=== PATIENT | male | born 1960 | race Caucasian/White ===

== ENCOUNTER 2025-02-07 13:45 | Outpatient (AMB) | payer OTHER, SELFPAY ==
[2025-02-07 13:48] VITALS: BP 120/68; PULSE 62; BMI 25.4
--- NOTE | 2025-02-07 13:48 | A.OFFVIS_ITS ---
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 Allergies No Known Allergies Allergy (Verified 02/07/25 13:52) Medication List - Last Reconciled 02/07/25 by Bayron Nava MD No Known Home Meds HPI Comments Details: Dominick is here for consultation regarding shortness of breath. He has got chronic myeloid leukemia currently in remission. He was apparently on Dasatinib for treatment. Recently, he was playing pickleball and developed significant shortness of breath/palpitations. It seems he tried that in a few days and again felt the same way. He does not have any history of cardiac issues otherwise coronary disease or myocardial infarction or cardiomyopathy. [facility] Medical History (Updated 02/07/25 @ 14:00 by Bayron Nava MD) CML (chronic myelocytic leukemia) Enlarged heart COPD (chronic obstructive pulmonary disease) Surgical History (Updated 02/07/25 @ 13:53 by Jami Roper) H/O knee surgery Family History (Updated 02/07/25 @ 13:55 by Jami Roper) Mother CHF (congestive heart failure) Pacemaker Stroke Diabetes Father Bladder cancer Social History (Updated 02/07/25 @ 13:55 by Jami Roper) Alcohol intake: former Patient Tobacco Use Status: Never used Tobacco Review of Systems Const Denies weakness ENT Denies dizziness Card Reports chest pain, Denies chest pain with activity, Denies syncope, Denies rapid heart rate, Denies pedal edema, Denies edema, Denies leg edema, Denies lightheadedness, Denies palpitations, Reports dyspnea, Denies dyspnea on exertion and Denies orthopnea Resp Denies cough, Reports dyspnea and Denies dyspnea on exertion GI Denies hematochezia and Denies change in stool character Musc Denies abnormal gait, Denies muscle cramps, Denies muscle weakness, Denies numbness, Denies radiating pain into limb and Denies tingling Neuro Denies abnormal gait, Denies dizziness, Denies syncope, Denies numbness, Denies tingling and Denies weakness Endo Denies palpitations Physical Exam Vital Signs: Last Vital Signs Pulse 62 02/07/25 13:48 BP 120/68 02/07/25 13:48 BMI result Body Mass Index 25.4 Const General: comfortable and no acute distress Orientation/consciousness: patient oriented x3 HEENT Other: Unremarkable Head: Yes normal to inspection Neck Neck: Yes normal visual inspection Chest Chest palpation & inspection: normal inspection of the chest Resp Auscultation: clear to auscultation bilaterally Cardio Palpation: normal PMI Heart sounds: S1 normal heart sound present, S2 normal heart sound present, no gallops, no murmurs and no rubs GI Palpation (GI): Soft to palpation Back/Spine/Pelvis Other: unremarkable Skin General skin exam: no rashes or lesions noted Neuro General: patient oriented x3 Extrem General: Yes normal to inspection Psych Mental Status: mental status grossly normal Office Procedures EKG Details: EKG with underlying sinus rhythm at 62/Min; sinus arrhythmias; cannot exclude old inferior infarct; [place] [address]-[id number], Complete Assessment & Plan Assessment & Plan (1) Chemotherapy follow-up examination: Code(s): Z09 - Encounter for follow-up examination after completed treatment for conditions other than malignant neoplasm Category: Medical (2) SOB (shortness of breath): Code(s): R06.02 - Shortness of breath Category: Medical (3) CML (chronic myelocytic leukemia): Code(s): C92.10 - Chronic myeloid leukemia, BCR/ABL-positive, not having achieved remission Category: Medical Plan In the recent chest x-ray, description of COPD; mild cardiomegaly. However, patient denies any prior history of smoking. With regard to Dasatinib use, he needs evaluation for any drug-induced cardiac dysfunction as well as pulmonary hypertension. We will start with an echocardiogram. If this is unremarkable, then we can consider either stress test or coronary CTA. If any clear LV dysfunction or overt wall motion abnormalities, then may require cardiac catheterization. We will follow-up after the echocardiogram is completed. We will also need his labs from oncologist as he states he was told to have some anemia. Discussed with significant other. Orders: Orders CA echo transthoracic complete Today C92.10 - Chronic myeloid leukemia, BCR/ABL-positive, not having achieved remission, R06.02 - Shortness of breath, Z09 - Encounter for follow-up examination after completed treatment for conditions other than malignant neoplasm Coding Level of Care Code New Pt Level 4 (29999) Complex EM visit Add On G2211 Diagnoses Chemotherapy follow-up examination Z09 SOB (shortness of breath) R06.02 CML (chronic myelocytic leukemia) C92.10 CPT Codes EKG - CPT: 63293-[id number], Complete ([id number])
--- OUTSIDE RECORDS SUMMARY | 2025-02-07 16:23 | XMS_ITS | Encounter Summary ---
Author Organization [facility] Address [address] [place] [address] Care Team Providers Care Trimmer Hand Name Role Phone Shakeel Menard MD Primary Care Provider Unavailab le Reason for Visit * Reason Comments Rash Encounter Details Date Type Department Care Team Description 04/05/2024 Nurse Only [facility] On[facility] [address] [place] [address] Christopher Schrader RN Rash Social History Tobacco Use Types Packs/Day Years Used Date Smoking Tobacco: Never Smokeless Tobacco: Never Alcohol Use Standard Drinks/Week Comments Yes 0 (1 standard drink = 0.6 oz pur e alcohol) social Sex and Gender Information Value Date Recorded Sex Assigned at Male 11/08/2020 8:46 AM EST Gender Identity Male 11/12/2020 12:59 PM EST Sexual Orientation Not on file Job Start Date Occupation Industry Not on file Not on file Not on file documented as of this encounter Progress Notes * Christopher Scrhader RN - 04/05/2024 11:00 AM EDT Patient here for lab work stopped at javascript front end developer and asked to see this documentation writer to discuss side effectfrom Tasigna he was experiencing. Patient has rash covering his entire body, face neck chest thighsand back. Showed Dr. Milton, Pt to stopped Tasigna will switch to Sprycel, new script sent to MD to release to [facility] Called [facility] to stop shipment due to arrive tomorrow. documented in this encounter Plan of Treatment Not on file documented as of this encounter Visit Diagnoses Not on filedocumented in this encounter Care Teams Trimmer Hand Relationship Specialty Start Date End Date Shakeel Menard MD PCP - General Internal Medicine 02/09/24 documented as of this encounter
--- OUTSIDE RECORDS SUMMARY | 2025-02-07 16:23 | XMS_ITS | Clinical Summary ---
Author Organization [facility] Address [address] [place] [address] Care Team Providers Care Credit Assessment Analyst Name Role Phone Shakeel Menard MD Primary Care Provider Unavailab le Allergies No known active allergies Medications Medication Sig Dispensed Refills Start Date End Date Status dasatinib (SPRYCEL) 100 MG tabletIndications:Chr onic myeloid leukemia (HCC) Take 1 tablet (100 mg total) by mouth daily 30 tablet 6 04/05/2024 Active Misc Natural Products (LUTEIN VISION BLEND PO) Take by mouth daily. 0 Active Active Problems No known active problems Social History Tobacco Use Types Packs/Day Years Used Date Smoking Tobacco: Never Smokeless Tobacco: Never Tobacco Cessation:Counseling Given: Not Answered Alcohol Use Standard Drinks/Week Comments Yes 0 (1 standard drink = 0.6 oz pur e alcohol) social Sex and Gender Information Value Date Recorded Sex Assigned at Male 11/08/2020 8:46 AM EST Gender Identity Male 11/12/2020 12:59 PM EST Sexual Orientation Not on file Job Start Date Occupation Industry Not on file Not on file Not on file Last Filed Vital Signs Vital Sign Reading Time Taken Comments Blood Pressure 120/66 08/05/2024 9:14 AM EDT Pulse 59 08/05/2024 9:14 AM EDT Temperature 36.8 ??C (98.2 ??F) 08/05/2024 9:14 AM ED T Respiratory Rate - - Oxygen Saturation 100% 08/05/2024 9:14 AM EDT Inhaled Oxygen Concentration - - Weight 76.9 kg (169 lb 9.6 oz) 08/05/2024 9:14 A M EDT Height 175.3 cm (5' 9 ) 04/28/2024 10:57 AM EDT Body Mass Index 25.05 04/28/2024 10:57 AM EDT Plan of Treatment Health Maintenance Due Date Last Done Comments Hepatitis C Screening 1960 COVID-19 Vaccine (#1) 1966 Pneumococcal Vaccine (1 of 2 - PCV) 1967 Depression Screening 1973 Preventative Health Evaluation 1979 Shingrix-Zoster Vaccine (1 of 2) 1980 Colon Cancer Screening (Colonoscopy) 2006 RSV Adult > 60+ Yrs or Pregn ant (1 - Risk 60-74 years 1-dose series) 2021 Influenza Vaccine (#1) 2024 DTap / Tdap / Td (2 - Td or Tdap) 03/04/2029 019 Hepatitis B Vaccines Aged Out No long er eligible based on patient's age to complete this topic RSV Ped < 20 months Aged Out No longe r eligible based on patient's age to complete this topic Care Teams Credit Assessment Analyst Relationship Specialty Start Date End Date Shakeel Menard MD PCP - General Internal Medicine 02/09/24
--- OUTSIDE RECORDS SUMMARY | 2025-02-07 16:23 | XMS_ITS | Clinical Summary ---
Author Organization [facility] Address [address] [place] [address] Care Team Providers Care Flute Teacher Name Role Phone Quinton Rosales Primary Care Provider Unavailabl e Active Problems Problem Noted Date Diagnosed Date Upper respiratory infection 06/17/2015 Overview (12/07/2023): Onset: 11/01/2010 Cerumen impaction 06/17/2015 Overview (12/07/2023): Onset: 09/01/2009 Microscopic hematuria 06/17/2015 Overview (12/07/2023): Onset: 09/01/2009 Social History Tobacco Use Types Packs/Day Years Used Date Smoking Tobacco: Never Assessed Sex and Gender Information Value Date Recorded Sex Assigned at Not on file Legal Sex Male 3:27 PM EDT Gender Identity Not on file Sexual Orientation Not on file Last Filed Vital Signs Vital Sign Reading Time Taken Comments Blood Pressure 130/80 11/01/2010 11:46 AM EST Pulse 60 11/01/2010 11:45 AM EST Temperature 36.4 ??C (97.5 ??F) 11/01/2010 1 1:45 AM EST Respiratory Rate - - Oxygen Saturation - - Inhaled Oxygen Concentration - - Weight 79.8 kg (175 lb 15.9 oz) 010 11:45 AM EST Height 178.4 cm (5' 10.25 ) 11/01/2010 11:45 AM EST Body Mass Index 25.07 11/01/2010 11:45 AM EST Plan of Treatment Health Maintenance Due Date Last Done Comments Hepatitis C Screening 1960 DTaP/Tdap/Td (1 - Tdap) 1979 Pneumococcal 50+ years (1 of 1 - PCV) 2011 Zoster (Shingrix) (1 of 2) 2011 COVID-19 Vaccine (2023-2 5 season) 2024 Influenza (#1) 2024 RSV (1 - 1-dose 75+ series) 2036 HPV Vaccine Aged Out No longer eligi ble based on patient's age to complete this topic Hep A Aged Out No longer eligi ble based on patient's age to complete this topic Hep B Aged Out No longer eligi ble based on patient's age to complete this topic Hib Aged Out No longer eligi ble based on patient's age to complete this topic Meningococcal ACWY Aged Out No longer eligible based on patient's age to complete this topic Zoster (Zostavax) Discontinued Care Teams Flute Teacher Relationship Specialty Start Date End Date Quinton Rosales PCP - General 06/09/23
--- OUTSIDE RECORDS SUMMARY | 2025-02-07 16:23 | XMS_ITS | Clinical Summary ---
Author Organization [facility] Address [address] [place] [address] Phone Care Team Providers Care System Controller Name Role Phone Shakeel Menard MD Primary Care Provider [phone] Allergies No known active allergies Medications LUTEIN ORAL Take by mouth 1 (one) time each day. Active dasatinib (SPRYCEL) 100 mg tablet Take 1 tablet (100 mg total) by mouth 1 (one) time each day 4 Active multivitamin with minerals (MULTIPLE VITAMIN-MINERAL S ORAL) Take 1 tablet by mouth 1 (one) time each day. 3 01/13/20 25 Discontinued dasatinib (SPRYCEL) 100 mg tablet TAKE 1 TABLET BY MOUTH DAILY 30 tablet 3 4 01/28/20 25 Discontinued Active Problems Problem Noted Date Diagnosed Date CML (chronic myelocytic leukemia) 02/01/2025 Microcytic anemia 02/01/2025 Hypertriglyceridemia 04/14/2018 Mid back pain 04/14/2018 Seborrheic keratosis 09/24/2017 Allergic rhinitis 03/25/2017 Encounters Date Type Department Care Team Description 02/01/2025 9:20 AM EDT Office Visit Gastroenterology [facility] [address] [facility] [address] [facility] [address] [place] [address] Luis Alfredo Bryant MD CML (chronic myelocytic leukemia) (CMS/HCC) (Primary Dx); Microcytic anemia 01/27/2025 10:26 AM EDT - 01/27/2025 11:59 PM EDT Hospital Encounter [facility] Xray [address] [place] [phone] Dyspnea on exertion Discharge Disposition: Home or Self Care 01/27/2025 9:15 AM EDT Office Visit [facility] Hematology Oncology [address] [place] [phone] Magda Milton MD CML (chronic myelocytic leukemia) ([facility]) (Primary Dx); Dyspnea on exertion; Microcytic anemia 01/26/2025 Telephone [facility] Hematology Oncology [address] [place] [phone] Christopher Schrader RN 01/12/2025 9:45 AM EDT Office Visit [facility] Hematology Oncology [address] [place] [phone] Magda Milton MD CML (chronic myelocytic leukemia) ([facility]/HCC) (Primary Dx) from Last 3 Months Immunizations Name Administration Dates Next Due Tdap Tetanus diptheria acell ular pertussis (Boostrix; Adacel) 7yo and older 03/04/2019 Surgical History Surgery Date Site/Laterality Comments OTHER SURGICAL HISTORY Bilateral PROCEDURE: IL ARTHRS KNE SURG W/MENISCECTOMY MED/LAT W/SHVG Medical History Medical History Date Comments History of cellulitis 06/14/2013 DX:History of cellulitis; COMMENT: and abscess of leg History of gastroenteritis 04/14/2018 DX:Hi story of gastroenteritis Mid back pain 04/14/2018 DX:Mid back pain Allergic rhinitis 03/25/2017 DX:Allergic rh initis Hypertriglyceridemia 04/14/2018 DX:Hypertri glyceridemia Family History Medical History Relation Name Comments Other: Other Father Diabetes Mother Relation Name Status Comments Father Alive Mother Alive Social History Tobacco Use Types Packs/Day Years Used Date Smoking Tobacco: Never Smokeless Tobacco: Never Tobacco Cessation:Counseling Given: Not Answered Alcohol Use Standard Drinks/Week Comments Yes 0 (1 standard drink = 0.6 oz pur e alcohol) Sex and Gender Information Value Date Recorded Sex Assigned at Male 01/27/2025 10:25 AM EDT Legal Sex Male 6:06 AM EST Gender Identity Male 01/27/2025 10:25 AM EDT Sexual Orientation Not on file Obstetrics History Last Filed Vital Signs Vital Sign Reading Time Taken Comments Blood Pressure 122/76 02/01/2025 9:14 AM EDT Pulse 76 02/01/2025 9:14 AM EDT Temperature 36.7 ??C (98.1 ??F) 01/27/2025 9:12 AM ED T Respiratory Rate - - Oxygen Saturation 100% 01/27/2025 9:12 AM EDT Inhaled Oxygen Concentration - - Weight 77.1 kg (170 lb) 02/02/2025 11:00 AM EDT Height 175.3 cm (5' 9 ) 02/02/2025 11:00 AM EDT Body Mass Index 25.1 02/02/2025 11:00 AM EDT Plan of Treatment Upcoming Encounters Date Type Department Care Team (Late st Contact Info) Description 02/10/2025 2:30 PM EDT Hospital Encounter [facility] Endoscopy [address] [place] [address] Tomás Conner MD [address] [address] 08/15/2025 10:00 AM EDT Office Visit [facility] Hematology Oncology [address] [place] [address] Magda Milton MD [address] [place] [address] Health Maintenance Due Date Last Done Comments Pneumococcal Vaccine: 50+ Years (1 of 2 - PCV) 1980 Pneumococcal Vaccine: Pediatrics (0 to 5 Years) and At-Risk Patients (6 to 64 Years) (1 of 2 - PCV) 1980 RSV Immunization Adult Patients (1 - Risk 60-74 years 1-dose series) 2021 Depression Screening 10/11/2022 HIV Screening 10/11/2022 Hepatitis C Screening 10/11/2022 Social Influencers of Health Screening 10/11/2022 Cholesterol Screening (Lipid Panel) 01/20/2029 01/21/2024 DTaP,Tdap,and Td Vaccines (2 - Td or Tdap) 03/04/2029 03/04/2019 Colorectal Cancer Screening: Colonoscopy 01/13/2034 01/14/2024 Zoster Vaccines Completed 06/17/2019, 04/05/2019 COVID-19 Vaccine Completed 07/01/2024, 08/2023, 07/26/2022, Additional history exists Influenza Vaccine Completed 07/01/2024, , 07/26/2022, Additional history exists HIB Vaccines Aged Out No longer eligi ble based on patient's age to complete this topic HPV Vaccines Aged Out No longer eligi ble based on patient's age to complete this topic Hepatitis A Vaccines Aged Out No long er eligible based on patient's age to complete this topic Hepatitis B Vaccines Aged Out No long er eligible based on patient's age to complete this topic IPV Vaccines Aged Out No longer eligi ble based on patient's age to complete this topic MMR Vaccines Aged Out No longer eligi ble based on patient's age to complete this topic Meningococcal ACWY Vaccine Aged Out N o longer eligible based on patient's age to complete this topic Meningococcal B Vaccine Aged Out No l onger eligible based on patient's age to complete this topic RSV Immunization Patients Under 20 months Aged Out No longer eligible based on patient's age to complete this topic Varicella Vaccines Aged Out No longer eligible based on patient's age to complete this topic Procedures Procedure Name Priority Date/Time Associated Diagnosis Comments XR CHEST 2 VIEWS Routine 01/27/2025 10:3 9 AM EDT Dyspnea on exertion CBC WITH AUTO DIFFERENTIAL Routine 01/27/2025 9:42 AM EDT CML (chronic myelocytic leukemia) (CMS/HCC) LACTATE DEHYDROGENASE Routine 01/27/2025 9:42 AM EDT CML (chronic myelocytic leukemia) (CMS/HCC) IRON AND TIBC Routine 01/27/2025 9:42 AM EDT CML (chronic myelocytic leukemia) (CMS/HCC) FERRITIN Routine 01/27/2025 9:42 AM EDT CML (chronic myelocytic leukemia) (CMS/HCC) CBC AND DIFFERENTIAL Routine 01/27/2025 9:42 AM EDT CML (chronic myelocytic leukemia) (CMS/HCC) ..MISCELLANEOUS REFERENCE LAB TEST 01/12/2025 CBC WITH AUTO DIFFERENTIAL Routine 12/31/2024 9:51 AM EST Chronic myeloid leukemia (CMS/HCC) BCR ABL1 KINASE PCR, QUANTITATIVE Routine 12/31/2024 9:51 AM EST Chronic myeloid leukemia (CMS/HCC) CBC AND DIFFERENTIAL Routine 12/31/2024 9:51 AM EST Chronic myeloid leukemia (CMS/HCC) COMPREHENSIVE METABOLIC PANEL Routine 12/31/2024 9:51 AM EST Chronic myeloid leukemia (CMS/HCC) LIPID PANEL Routine 01/21/2024 HM COLONOSCOPY Routine 01/14/2024 from Last 3 Months or Most Recently Relevant to Health Maintenance Results * XR Chest 2 Views (01/27/2025 10:39 AM EDT) Anatomical Region Laterality Modality Body Radiographic Karen ging 01/27/2025 11:1 8 AM EDT Impressions 01/27/2025 11:19 AM EDT No acute pulmonary disease. ??Findings as above consistent with COPD. ??Mild cardiomegaly; further evaluation with echocardiography should be considered. Code 58362 -------- FINAL REPORT -------- Dictated By: Jasbir Nobles Dictated Date: 01/27/2025 11:18 ET Assigned Physician: Jasbir Nobles Reviewed and Electronically Signed By: Jasbir Nobles Signed Date: 01/27/2025 11:19 ET Workstation ID: [id number] Transcribed By: Self Edit Transcribed Date: 01/27/2025 11:18 ET Narrative 01/27/2025 11:19 AM EDT HISTORY: The patient is a 64-year-old male with dyspnea. FINDINGS: PA and lateral radiographs of the chest demonstrate normal appearance of the bony structures. ??The cardiac silhouette is mildly enlarged with a cardiothoracic ratio of 0.53. ??The mediastinal contour is within normal limits. ??The lungs are hyperinflated with flattening of the diaphragm consistent with chronic obstructive pulmonary disease. ??There is no consolidation, mass, pulmonary vascular congestion, or pleural effusion. Procedure Note Jasbir Nobles MD - 01/27/2025 HISTORY: The patient is a 64-year-old male with dyspnea. FINDINGS: PA and lateral radiographs of the chest demonstrate normalappearance of the bony structures. The cardiac silhouette is mildlyenlarged with a cardiothoracic ratio of 0.53. The mediastinal contour iswithin normal limits. The lungs are hyperinflated with flattening of thediaphragm consistent with chronic obstructive pulmonary disease. There isno consolidation, mass, pulmonary vascular congestion, or pleuraleffusion. IMPRESSION: No acute pulmonary disease. Findings as above consistent with COPD. Mildcardiomegaly; further evaluation with echocardiography should beconsidered. Code 81557 -------- FINAL REPORT -------- Dictated By: Jasbir Nobles Dictated Date: 01/27/2025 11:18 ET Assigned Physician: Jasbir Nobles Reviewed and Electronically Signed By: Jasbir Nobles Signed Date: 01/27/2025 11:19 ET Workstation ID: [id number] Transcribed By: Self Edit Transcribed Date: 01/27/2025 11:18 ET Magda Milton MD IMG XR PROCEDURES Final Resu lt * (ABNORMAL) CBC auto differential (01/27/2025 9:42 AM EDT) Only the most recent of2 resultswithin the time period is included. WBC 7.9 4.8 - 10.8 K/mcL LAB HEMETOLOGY METHOD 01/27/2025 11:40 AM EDT [facility] RBC 4.80 4.50 - 5.50 M/mcL LAB HEMETOLOGY METHOD 01/27/2025 11:40 AM EDT [facility] Hemoglobin 10.4(L) 13.5 - 17.5 g/dL LAB HEMETOLOGY METHOD 01/27/2025 11:40 AM [facility] Hematocrit 35.8(L) 42.0 - 54.0 % LAB HEMETOLOGY METHOD 01/27/2025 11:40 AM [facility] MCV 74.3(L) 79.0 - 98.0 FL LAB HEMETOLOGY METHOD 01/27/2025 11:40 AM [facility] MCH 21.6(L) 27.0 - 32.0 pcg LAB HEMETOLOGY METHOD 01/27/2025 11:40 AM [facility] MCHC 29.1(L) 32.0 - 37.0 g/dL LAB HEMETOLOGY METHOD 01/27/2025 11:40 AM [facility] RDW 15.5(H) 11.0 - 15.0 % LAB HEMETOLOGY METHOD 01/27/2025 11:40 AM [facility] Platelets 366 130 - 400 K/mcL LAB HEMETOLOGY METHOD 01/27/2025 11:40 AM [facility] MPV 9.1 7.0 - 11.0 FL LAB HEMETOLOGY METHOD 01/27/2025 11:40 AM [facility] NRBC 0.0 <1.0 % LAB HEMETOLOGY METHOD 01/27/2025 11:40 AM [facility] NRBC Absolute 0.00 <0.10 K/mcL LAB HEMETOLOGY METHOD 01/27/2025 11:40 AM [facility] Neutrophils Relative 51.9 % LAB HEMETOLOGY METHOD 01/27/2025 11:40 AM [facility] Lymphocytes Relative 31.3 % LAB HEMETOLOGY METHOD 01/27/2025 11:40 AM [facility] Monocytes Relative 11.1 % LAB HEMETOLOGY METHOD 01/27/2025 11:40 AM EDT [facility] Eosinophils Relative 4.7 % LAB HEMETOLOGY METHOD 01/27/2025 11:40 AM EDT [facility] Basophils Relative 0.6 % LAB HEMETOLOGY METHOD 01/27/2025 11:40 AM EDT [facility] Immature Granulocytes Relative 0.4 % LAB HEMETOLOGY METHOD 01/27/2025 11:40 AM EDT [facility] Neutrophils Absolute 4.07 1.50 - 7.00 K/mcL LAB HEMETOLOGY METHOD 01/27/2025 11:40 AM EDT [facility] Lymphocytes Absolute 2.46 1.00 - 5.00 K/mcL LAB HEMETOLOGY METHOD 01/27/2025 11:40 AM EDT [facility] Monocytes Absolute 0.87 0.20 - 1.00 K/mcL LAB HEMETOLOGY METHOD 01/27/2025 11:40 AM EDT [facility] Eosinophils Absolute 0.37 0.00 - 0.50 K/mcL LAB HEMETOLOGY METHOD 01/27/2025 11:40 AM EDT [facility] Basophils Absolute 0.05 0.00 - 0.20 K/mcL LAB HEMETOLOGY METHOD 01/27/2025 11:40 AM EDT [facility] Immature Granulocytes Absolute 0.03 0.00 - 0.03 K/mcL LAB HEMETOLOGY METHOD 01/27/2025 11:40 AM EDT [facility] Blood Venous blood specimen / Unknown Venipuncture / Unknown 01/27/2025 9:42 AM EDT 01/27/2025 11:23 AM EDT us Magda Milton MD LAB BLOOD ORDERABLES Final R esult [facility] [address] [place] [address], [place] [phone] * (ABNORMAL) Iron and TIBC (01/27/2025 9:42 AM EDT) [facility] Iron 33(L) 50 - 160 mcg/dL LAB CHEMISTRY METHOD 01/27/2025 12:38 PM EDT [facility] TIBC 488(H) 250 - 450 mcg/dL LAB CHEMISTRY METHOD 01/27/2025 12:38 PM EDT [facility] Iron Saturation 7(L) 20 - 50 % LAB CHEMISTRY METHOD 01/27/2025 12:38 PM EDT [facility] Blood Venous blood specimen / Unknown Venipuncture / Unknown 01/27/2025 9:42 AM EDT 01/27/2025 11:22 AM EDT us Magda Milton MD LAB BLOOD ORDERABLES Final R esult Performing Organization Address City/[facility]/ZIP Co de Phone Number [facility] [address] [place] [address], [place] [phone] * Lactate dehydrogenase (01/27/2025 9:42 AM EDT) [facility] LDH 177 120 - 246 unit/L LAB CHEMISTRY METHOD 01/27/2025 12:38 PM EDT [facility] Blood Venous blood specimen / Unknown Venipuncture / Unknown 01/27/2025 9:42 AM EDT 01/27/2025 11:22 AM EDT us Magda Milton MD LAB BLOOD ORDERABLES Final R esult [facility] [address] [place] [address], [place] [phone] * (ABNORMAL) Ferritin (01/27/2025 9:42 AM EDT) [facility] Ferritin 5(L) 26 - 388 ng/mL LAB CHEMISTRY METHOD 01/27/2025 12:40 PM EDT [facility] Blood Venous blood specimen / Unknown Venipuncture / Unknown 01/27/2025 9:42 AM EDT 01/27/2025 11:22 AM EDT Magda Milton MD LAB BLOOD ORDERABLES Final R esult Performing Organization Address City/[facility]/ZIP Co de Phone Number [facility] [address] [place] [address], [place] [phone] * Miscellaneous reference lab test (01/12/2025) Provider Onbase LAB BLOOD ORDERABLES Final Re sult * BCR ABL1 kinase molecular study, quantitative (12/31/2024 9:51 AM EST) Scan Result See Scanned Result 01/10/2025 8:33 AM EDT [facility] Blood Venous blood specimen / Unknown Venipuncture / Unknown 12/31/2024 9:51 AM EST 12/31/2024 1:16 PM EST Magda Milton MD LAB MOLECULAR DIAGNOSTICS OR DERABLES Final Result Performing Organization Address City/[facility]/ZIP Co de Phone Number [facility] * (ABNORMAL) Comprehensive metabolic panel (12/31/2024 9:51 AM EST) Pathologist [facility] Sodium 139 133 - 145 mmol/L LAB CHEMISTRY METHOD 12/31/2024 3:07 PM EST [facility] Potassium 3.9 3.5 - 5.5 mmol/L LAB CHEMISTRY METHOD 12/31/2024 3:07 PM EST [facility] Chloride 109 96 - 110 mmol/L LAB CHEMISTRY METHOD 12/31/2024 3:07 PM EST [facility] CO2 26 21 - 32 mmol/L LAB CHEMISTRY METHOD 12/31/2024 3:07 PM [facility] Anion Gap 4 3 - 11 LAB CHEMISTRY METHOD 12/31/2024 3:07 PM [facility] Glucose 86 70 - 100 mg/dL LAB CHEMISTRY METHOD 12/31/2024 3:07 PM [facility] BUN 19 5 - 25 mg/dL LAB CHEMISTRY METHOD 12/31/2024 3:07 PM [facility] Creatinine 0.69(L) 0.70 - 1.30 mg/dL LAB CHEMISTRY METHOD 12/31/2024 3:07 PM [facility] eGFR 104 >=60 mL/min/1. 73m2 LAB CHEMISTRY METHOD 12/31/2024 3:07 PM [facility] Comment:Calculation based on the??Chronic Kidney Disease Epidemiology Collaboration (CKD-EPI) equation refit??without adjustment for race. BUN/Creatinine Ratio 27.5 LAB CHEMISTRY METHOD 12/31/2024 3:07 PM [facility] Calcium 8.7 8.5 - 10.5 mg/dL LAB CHEMISTRY METHOD 12/31/2024 3:07 PM [facility] AST (SGOT) 15 10 - 42 unit/L LAB CHEMISTRY METHOD 12/31/2024 3:07 PM [facility] ALT (SGPT) 27 10 - 60 unit/L LAB CHEMISTRY METHOD 12/31/2024 3:07 PM [facility] Alkaline Phosphatase 91 42 - 121 unit/L LAB CHEMISTRY METHOD 12/31/2024 3:07 PM [facility] Total Protein 6.5 6.0 - 8.0 g/dL LAB CHEMISTRY METHOD 12/31/2024 3:07 PM [facility] Albumin 3.5 3.2 - 5.0 g/dL LAB CHEMISTRY METHOD 12/31/2024 3:07 PM [facility] Total Bilirubin 0.4 0.0 - 1.4 mg/dL LAB CHEMISTRY METHOD 12/31/2024 3:07 PM EST [facility] Blood Venous blood specimen / Unknown Venipuncture / Unknown 12/31/2024 9:51 AM EST 12/31/2024 1:16 PM EST Magda Milton MD LAB BLOOD ORDERABLES Final R esult [facility] [address] [place] [address], * (ABNORMAL) Lipid panel (01/21/2024) LDL/HDL Ratio 4 0 - 4 Triglycerides 106 0 - 150 mg/dL Cholesterol 189 0 - 200 mg/dL HDL 49 >=40 mg/dL LDL Cholesterol 119(A) 0 - 100 mg/dL Blood Venous blood specimen / Unknown Historical Provider LAB BLOOD ORDERABLES Cristy l Result * Colonoscopy (01/14/2024) Colonoscopy no interpretation , abstracted Anatomical Region Laterality Modality Other Historical Provider HEALTH MAINTENANCE Final Result from Last 3 Months or Most Recently Relevant to [place] [address] [facility] [address] [place] [address] Care Teams System Controller Relationship Specialty Start Date End Date Shakeel Menard MD [address] [facility] [address] [place] [address] PCP - General Internal Medicine 11/23/18
== END 2025-02-07 14:43 | disposition home or self-care (01) ==
LOC: HO.HCS 13:46
PROVIDERS: PCP Internal Medicine; Visit Provider Internal Medicine
DX: Z09 Encounter for follow-up examination after completed treatment for conditions other than malignant neoplasm (principal); R06.02 Shortness of breath; C92.10 Chronic myeloid leukemia, BCR/ABL-positive, not having achieved remission
CPT/HCPCS: 93010; 99204

== ENCOUNTER → 2025-02-07 13:45 | Outpatient (BNVA) | payer OTHER, SELFPAY | PROVIDERS: PCP Internal Medicine; Visit Provider Internal Medicine ==

== ENCOUNTER → 2025-02-07 14:42 | Outpatient (REF) | payer OTHER, SELFPAY ==
--- NOTE | 2025-02-07 14:47 | CA_ITS ---
Transthoracic Echocardiogram Patient (Last, First, Middle): Dominick Minaya, Gender: Male Date of : 1960 Age: 64 Procedure Date: 02/07/2025 Procedure Type: Transthoracic Echocardiogram Location: OP Height: 175.26 cm Weight: 77.11 kg BSA: 1.93 m2 Heart Rate: 57 bpm BP: 128 / 64 mmHg Team Lead: SB Referring MD: Bayron Nava MD Symptoms: R06.02 - Shortness of breath Study Quality: Adequate ECG Rhythm: Sinus Conclusions: - The left ventricular systolic function is normal. The calculated ejection fraction is 67% by biplane method. - Possible basal inferior hypokinesis. - No obvious valvular pathology seen on this study. - There is no evidence of pulmonary hypertension. Findings Procedure Information The quality of the study was technically difficult. The study quality is limited by lung artifact. Left Ventricle Normal left ventricular cavity size. There is normal left ventricular wall thickness. The left ventricular systolic function is normal. The calculated ejection fraction is 67% by biplane method. Diastolic function is normal for age. E/E prime ratio is <8, consistent with normal filling pressures. Possible basal inferior hypokinesis. LV peak GLS -14.8% (reduced). Wall Motion Rest Echo Findings The basal inferior segment is hypokinetic. Atria Both atria are normal in size. Aortic Valve There is a normal trileaflet aortic valve. There is no aortic valve stenosis. There is no aortic valve regurgitation. Mitral Valve The mitral valve appears normal. There is trace mitral valve regurgitation. There is no mitral valve stenosis. Pulmonic Valve The pulmonic valve is likely normal. Tricuspid Valve Normal tricuspid valve structure. There is trace tricuspid valve regurgitation. There is no evidence of pulmonary hypertension. Great Vessels The asc aorta is normal in size. Venous The inferior vena cava is normal in size and collapses greater than 50% with inspiration. Pericardium/Pleural There is no evidence of pericardial effusion. Prior Study Comparison No prior study available for comparison. Recommendations, Care & Conclusions No obvious valvular pathology seen on this study. Measurements 2D Linear Measurements IVSd: 0.95 0.6-0.9/0.6-1.0 cm LVIDd: 5.24 3.9-5.3/4.2-5.9 cm LVIDd Index: 2.72 2.4-3.2/2.2-3.1 cm/m2 LVIDs: 3.47 2.0-3.6 cm LVPWd: 0.68 0.7-1.1 cm LA Diam: 3.40 2.7-3.8/3.0-4.0 cm LAIDs Index: 1.76 1.5-2.3 cm/m2 LV Mass: 187.87 67-162/88-224 g LV Mass Index: 97.34 43-95/49-115 g/m2 LVOT Diam: 2.50 3.0+(-)1.3 cm 2D Systolic Function EF 4C: 65.50 >55% EF 2C: 67.10 >55% EF BiP: 67.10 >55% Mitral Valve MV Pk E: 0.62 MV PK A: 0.48 MV Decel Time: 182.00 E/A: 1.30 E'Lateral: 8.16 E'Medial: 7.62 E/E' Med: 8.10 E/E' Lat: 7.60 PHT: 53.00 MVA PHT: 4.15 Decel Dixie: 3.39 Aortic Valve AoV Pk Devendra: 1.14 AoV Pk Grad: 5.00 KAILEE: 4.00 LVOT LVOT Pk Devendra: 1.01 LVOT Mn Devendra: 0.67 LVOT VTI: 0.20 LVOT Pk Grad: 4.00 LVOT Mn Grad: 2.00 LVOT Diam: 2.50 LVOT Area: 4.91 Diastolic Function MV Pk E: 0.62 MV Pk A: 0.48 E/A: 1.30 E'Medial: 7.62 E/E' Med: 8.10 E' Laterial: 8.16 E/E' Lat: 7.60 Right Ventricle TAPSE (mm): 30.40 TVS' Devendra: 13.60 Tricuspid Valve TR Pk Devendra: 2.06 TR Pk Grad: 17.00 RA Press: 3.00 RVSP: 20.00 Great Vessels Aorta Sinus of Valsalva: 3.50 2.0-3.5 cm Ao Asc: 3.60 2.1-3.4 cm Ao Arch: 3.50 Pulmonary Veins Pulm Vein S/D 1.30 Pulmonary Valve PV Pk Devendra: 1.37 Peak PV Grad: 8.00 Updated in Other Vendor System with Status of Final Bayron Nava MD electronically signed on 02/08/2025 8:44:28 AM with status of Final
--- OUTSIDE RECORDS SUMMARY | 2025-02-07 17:35 | XMS_ITS | Clinical Summary ---
Author Organization [facility] Address [address] [place] [address] Care Team Providers Care Rectification Printer Name Role Phone Quinton Rosales Primary Care [...] this topic Zoster (Zostavax) Discontinued Care Teams Rectification Printer Relationship Specialty Start Date End Date Quinton Rosales PCP - General 06/09/23
--- OUTSIDE RECORDS SUMMARY | 2025-02-07 17:35 | XMS_ITS | Encounter Summary ---
Author Organization [facility] Address [address] [place] [address] Care Team Providers Care Wall Cleaner Name Role Phone Shakeel Menard MD Primary Care Provider Unavailab le Reason for Visit * Reason Comments Rash Encounter Details Date Type Department Care Team Description 04/05/2024 Nurse Only [facility] Oncology Services [address] [place] [address] Christopher Schrader RN Rash Social History Tobacco [...] of this encounter Progress Notes * Christopher Schrader RN - 04/05/2024 11:00 AM EDT Patient here for lab work stopped at lockstitch front maker and asked to see this keno writer to discuss side effectfrom Tasigna he [...] on filedocumented in this encounter Care Teams Wall Cleaner Relationship Specialty Start Date End Date Shakeel Menard MD PCP - General Internal Medicine 02/09/24 documented as of this encounter
--- OUTSIDE RECORDS SUMMARY | 2025-02-07 17:36 | XMS_ITS | Clinical Summary ---
Author Organization [facility] Address [address] [place] [address] Phone Care Team Providers Care Steward/Stewardess Banquet Name Role Phone Shakeel Menard MD Primary Care Provider [phone] Allergies No known active allergies Medications LUTEIN [...] 02/01/2025 9:20 AM EDT Office Visit Gastroenterology [facility] 175 [facility] 175 [facility] [address] [place] [address] Luis Alfredo Bryant MD CML (chronic myelocytic leukemia) (CMS/HCC) (Primary Dx); Microcytic anemia 01/27/2025 10:26 AM EDT - 01/27/2025 11:59 PM EDT Hospital Encounter [facility] Xray [address] [place] [phone] Dyspnea on exertion Discharge Disposition: Home or Self Care 01/27/2025 9:15 AM EDT Office Visit [facility] Hematology Oncology [address] [place] [phone] Magda Milton MD CML (chronic myelocytic leukemia) ([facility]) (Primary Dx); Dyspnea on exertion; Microcytic anemia 01/26/2025 Telephone [facility] Hematology Oncology [address] [place] [phone] Christopher Schrader RN 01/12/2025 9:45 AM EDT Office Visit [facility] Hematology Oncology [address] [place] [phone] Magda Milton MD CML (chronic myelocytic leukemia) ([facility]/HCC) (Primary Dx) from Last 3 Months Immunizations Name Administration Dates Next Due Tdap Tetanus diptheria acell ular pertussis (Boostrix; Adacel) 7yo and older 03/04/2019 Surgical History Surgery Date Site/Laterality Comments OTHER SURGICAL HISTORY Bilateral PROCEDURE: [place] ARTHRS KNE SURG W/MENISCECTOMY MED/LAT W/SHVG Medical [...] Description 02/10/2025 2:30 PM EDT Hospital Encounter [facility] Endoscopy [address] [place] [address] Tomás Conner MD [address] [address] 08/15/2025 10:00 AM EDT Office Visit [facility] Hematology Oncology [address] [place] [address] Magda Milton MD [address] [place] [address] Health Maintenance Due Date Last Done Comments [...] evaluation with echocardiography should be considered. Code 55511 -------- FINAL REPORT -------- Dictated By: Jasbir Nobles Dictated Date: 01/27/2025 11:18 ET Assigned Physician: Jasbir Nobles Reviewed and Electronically Signed By: Jasbir Nobles Signed Date: 01/27/2025 11:19 ET Workstation ID: [id number] Transcribed By: Self Edit Transcribed Date: 01/27/2025 [...] further evaluation with echocardiography should beconsidered. Code 87461 -------- FINAL REPORT -------- Dictated By: Jasbir Nobles Dictated Date: 01/27/2025 11:18 ET Assigned Physician: Jasbir Nobles Reviewed and Electronically Signed By: Jasbir Nobles Signed Date: 01/27/2025 11:19 ET Workstation ID: [id number] Transcribed By: Self Edit Transcribed Date: 01/27/2025 11:18 ET Magda Milton MD IMG XR PROCEDURES Final Resu lt * (ABNORMAL) CBC auto differential (01/27/2025 9:42 AM EDT) Only the most recent of2 resultswithin the time period is included. WBC 7.9 4.8 - 10.8 K/mcL LAB HEMETOLOGY METHOD 01/27/2025 11:40 AM EDT [facility] RBC 4.80 4.50 - 5.50 M/mcL LAB HEMETOLOGY METHOD 01/27/2025 11:40 AM EDT [facility] Hemoglobin 10.4(L) 13.5 - 17.5 g/dL LAB HEMETOLOGY METHOD 01/27/2025 11:40 AM [facility] Hematocrit 35.8(L) 42.0 - 54.0 % LAB HEMETOLOGY METHOD 01/27/2025 11:40 AM [facility] MCV 74.3(L) 79.0 - 98.0 FL LAB HEMETOLOGY METHOD 01/27/2025 11:40 AM [facility] MCH 21.6(L) 27.0 - 32.0 pcg LAB HEMETOLOGY METHOD 01/27/2025 11:40 AM [facility] MCHC 29.1(L) 32.0 - 37.0 g/dL LAB HEMETOLOGY METHOD 01/27/2025 11:40 AM [facility] RDW 15.5(H) 11.0 - 15.0 % LAB HEMETOLOGY METHOD 01/27/2025 11:40 AM [facility] Platelets 366 130 - 400 K/mcL LAB HEMETOLOGY METHOD 01/27/2025 11:40 AM [facility] MPV 9.1 7.0 - 11.0 FL LAB HEMETOLOGY METHOD 01/27/2025 11:40 AM [facility] NRBC 0.0 <1.0 % LAB HEMETOLOGY METHOD 01/27/2025 11:40 AM [facility] NRBC Absolute 0.00 <0.10 K/mcL LAB HEMETOLOGY METHOD 01/27/2025 11:40 AM [facility] Neutrophils Relative 51.9 % LAB HEMETOLOGY METHOD 01/27/2025 11:40 AM [facility] Lymphocytes Relative 31.3 % LAB HEMETOLOGY METHOD 01/27/2025 11:40 AM [facility] Monocytes Relative 11.1 % LAB HEMETOLOGY METHOD 01/27/2025 11:40 AM EDT [facility] Eosinophils Relative 4.7 % LAB HEMETOLOGY METHOD 01/27/2025 11:40 AM EDT [facility] Basophils Relative 0.6 % LAB HEMETOLOGY METHOD 01/27/2025 11:40 AM EDT [facility] Immature Granulocytes Relative 0.4 % LAB HEMETOLOGY METHOD 01/27/2025 11:40 AM EDT [facility] Neutrophils Absolute 4.07 1.50 - 7.00 K/mcL LAB HEMETOLOGY METHOD 01/27/2025 11:40 AM EDT [facility] Lymphocytes Absolute 2.46 1.00 - 5.00 K/mcL LAB HEMETOLOGY METHOD 01/27/2025 11:40 AM EDT [facility] Monocytes Absolute 0.87 0.20 - 1.00 K/mcL LAB HEMETOLOGY METHOD 01/27/2025 11:40 AM EDT [facility] Eosinophils Absolute 0.37 0.00 - 0.50 K/mcL LAB HEMETOLOGY METHOD 01/27/2025 11:40 AM EDT [facility] Basophils Absolute 0.05 0.00 - 0.20 K/mcL LAB HEMETOLOGY METHOD 01/27/2025 11:40 AM EDT [facility] Immature Granulocytes Absolute 0.03 0.00 - 0.03 K/mcL LAB HEMETOLOGY METHOD 01/27/2025 11:40 AM EDT [facility] Blood Venous blood specimen / Unknown Venipuncture / Unknown 01/27/2025 9:42 AM EDT 01/27/2025 11:23 AM EDT us Magda Milton MD LAB BLOOD ORDERABLES Final R esult [facility] [address] [place] [address], [place] [phone] * (ABNORMAL) Iron and TIBC (01/27/2025 9:42 AM EDT) [facility] Iron 33(L) 50 - 160 mcg/dL LAB CHEMISTRY METHOD 01/27/2025 12:38 PM EDT [facility] TIBC 488(H) 250 - 450 mcg/dL LAB CHEMISTRY METHOD 01/27/2025 12:38 PM EDT [facility] Iron Saturation 7(L) 20 - 50 % LAB CHEMISTRY METHOD 01/27/2025 12:38 PM EDT [facility] Blood Venous blood specimen / Unknown Venipuncture / Unknown 01/27/2025 9:42 AM EDT 01/27/2025 11:22 AM EDT us Magda Milton MD LAB BLOOD ORDERABLES Final R esult Performing Organization Address City/[facility]/ZIP Co de Phone Number [facility] [address] [place] [address], [place] [phone] * Lactate dehydrogenase (01/27/2025 9:42 AM EDT) [facility] LDH 177 120 - 246 unit/L LAB CHEMISTRY METHOD 01/27/2025 12:38 PM EDT [facility] Blood Venous blood specimen / Unknown Venipuncture / Unknown 01/27/2025 9:42 AM EDT 01/27/2025 11:22 AM EDT us Magda Milton MD LAB BLOOD ORDERABLES Final R esult [facility] [address] [place] [address], [place] [phone] * (ABNORMAL) Ferritin (01/27/2025 9:42 AM EDT) [facility] Ferritin 5(L) 26 - 388 ng/mL LAB CHEMISTRY METHOD 01/27/2025 12:40 PM EDT [facility] Blood Venous blood specimen / Unknown Venipuncture / Unknown 01/27/2025 9:42 AM EDT 01/27/2025 11:22 AM EDT Magda Milton MD LAB BLOOD ORDERABLES Final R esult Performing Organization Address [facility]/ZIP Co de Phone Number [facility] [address] [place] [address], [place] [phone] * Miscellaneous reference lab test (01/12/2025) Provider [...] OR DERABLES Final Result Performing Organization Address [facility]/ZIP Co de Phone Number [id number] * (ABNORMAL) Comprehensive metabolic panel (12/31/2024 9:51 AM EST) Pathologist [facility] Sodium 139 133 - 145 mmol/L LAB CHEMISTRY METHOD 12/31/2024 3:07 PM EST [facility] Potassium 3.9 3.5 - 5.5 mmol/L LAB CHEMISTRY METHOD 12/31/2024 3:07 PM EST [facility] Chloride 109 96 - 110 mmol/L LAB CHEMISTRY METHOD 12/31/2024 3:07 PM EST [facility] CO2 26 21 - 32 mmol/L LAB CHEMISTRY METHOD 12/31/2024 3:07 PM [facility] Anion Gap 4 3 - 11 LAB CHEMISTRY METHOD 12/31/2024 3:07 PM [facility] Glucose 86 70 - 100 mg/dL LAB CHEMISTRY METHOD 12/31/2024 3:07 PM [facility] BUN 19 5 - 25 mg/dL LAB CHEMISTRY METHOD 12/31/2024 3:07 PM [facility] Creatinine 0.69(L) 0.70 - 1.30 mg/dL LAB CHEMISTRY METHOD 12/31/2024 3:07 PM [facility] eGFR 104 >=60 mL/min/1. 73m2 LAB CHEMISTRY METHOD 12/31/2024 3:07 PM [facility] Comment:Calculation based on the??Chronic Kidney Disease Epidemiology Collaboration (CKD-EPI) equation refit??without adjustment for race. BUN/Creatinine Ratio 27.5 LAB CHEMISTRY METHOD 12/31/2024 3:07 PM [facility] Calcium 8.7 8.5 - 10.5 mg/dL LAB CHEMISTRY METHOD 12/31/2024 3:07 PM [facility] AST (SGOT) 15 10 - 42 unit/L LAB CHEMISTRY METHOD 12/31/2024 3:07 PM [facility] ALT (SGPT) 27 10 - 60 unit/L LAB CHEMISTRY METHOD 12/31/2024 3:07 PM [facility] Alkaline Phosphatase 91 42 - 121 unit/L LAB CHEMISTRY METHOD 12/31/2024 3:07 PM [facility] Total Protein 6.5 6.0 - 8.0 g/dL LAB CHEMISTRY METHOD 12/31/2024 3:07 PM [facility] Albumin 3.5 3.2 - 5.0 g/dL LAB CHEMISTRY METHOD 12/31/2024 3:07 PM [facility] Total Bilirubin 0.4 0.0 - 1.4 mg/dL LAB CHEMISTRY METHOD 12/31/2024 3:07 PM EST [facility] Blood Venous blood specimen / Unknown Venipuncture / Unknown 12/31/2024 9:51 AM EST 12/31/2024 1:16 PM EST Magda Milton MD LAB BLOOD ORDERABLES Final R esult [facility] [address] [place] [address], * (ABNORMAL) Lipid panel (01/21/2024) LDL/HDL Ratio [...] Relevant to [place] [id number] [facility] [address] [place] [address] Care Teams Steward/Stewardess Banquet Relationship Specialty Start Date End Date Shakeel Menard MD 175 [facility] [address] [place] [address] PCP - General Internal Medicine 11/23/18
--- OUTSIDE RECORDS SUMMARY | 2025-02-07 17:36 | XMS_ITS | Clinical Summary ---
Author Organization [facility] Address [address] [place] [address] Care Team Providers Care Crm System Administrator Name Role Phone Shakeel Menard MD Primary [...] age to complete this topic Care Teams Crm System Administrator Relationship Specialty Start Date End Date Shakeel Menard MD PCP - General Internal Medicine 02/09/24
== END ==
LOC: HO.CARD 14:42
PROVIDERS: PCP Internal Medicine; Visit Provider Internal Medicine
DX: R06.02 Shortness of breath (principal); C92.10 Chronic myeloid leukemia, BCR/ABL-positive, not having achieved remission
CPT/HCPCS: 93005; 93306

== ENCOUNTER → 2025-04-22 09:48 | Outpatient (REF) | payer OTHER, SELFPAY ==
--- OUTSIDE RECORDS SUMMARY | 2025-04-19 11:15 | XMS_ITS | Encounter Summary ---
Author Organization [facility] Address [address] [place] [address] Care Team Providers Care Range Master Name Role Phone Shakeel Menard MD Primary Care Provider [phone] Reason for Visit * Reason Comments Annual Exam Encounter Details Date Type Department Care Team ([facility] st Contact Info) Description 04/19/2025 11:15 AM EDT Office Visit Internal Medicine - [place] 175 [facility] [address] [place] [address] Shakeel Menard MD 175 [facility] [address] [place] [address] Adult general medical examination (Primary Dx); CML (chronic myelocytic leukemia) (CMS/HCC V24, CMS/HCC V28); Hypertriglyceridemia Social History Tobacco Use Types Packs/Day Years Used Date Smoking Tobacco: Never Smokeless Tobacco: Never Alcohol Use Standard Drinks/Week Comments Yes 0 (1 standard drink = 0.6 oz pur e alcohol) SOCIALLY Housing Instability Answer Date Recorde d Are you worried that in the next 2 months you may not have stable housing? No 04/12/2025 Food Access & Nutrition Answer Date Rec orded Do you have access to a vari ety of food including fruits and vegetables? Yes 04/12/2025 Access to Healthcare Answer Date Record ed Within the last 3 months, randall miguel many times did you visit the emergency department for your medical care? 0 04/12/2025 Health Literacy Answer Date Recorded How often do you need to hav e someone help you when you read instructions, pamphlets, or other written material from your doctor or pharmacy? Never 04/12/2025 Caregiver: How often do you need to have someone help you when you read instructions, pamphlets, or other written material from your doctor or pharmacy? Not on file 04/12/2025 Financial Risk Answer Date Recorded How hard is it for you to pa y for the very basics like food, housing, medical care, and air conditioning / heating? Not very hard 04/12/2025 Transportation Answer Date Recorded Has the lack of transportati on kept you from meetings, work, or from getting things needed for daily living? No Has the lack of transportati on kept you from medical appointments or from getting medications? No 04/12/2025 Social Isolation Answer Date Recorded How often do you feel lonely or isolated from th ose around you? Never 04/12/2025 Food Risk Answer Date Recorded Within the past 12 months we worried whether our food would run out before we got money to buy more. Never true 04/12/2025 Within the past 12 months th e food we bought just didn't last and we didn't have money to get more. Never true 04/12/2025 Dependent Care Answer Date Recorded Do you need help finding or paying for care for your loved ones. For example, childcare teacher or elderly care for an older adult? No 04/12/2025 Education Answer Date Recorded Do you think completing more education or training, like finishing a GED, going to college, or learning a trade, would be helpful for you? No 04/12/2025 Employment and Income Answer Date Recor ded During the last four weeks, have you been actively looking for work? No 04/12/2025 Living Situation Answer Date Recorded What is your living situation? 0 04/12/2025 Interpersonal Safety Answer Date Record ed Physical Abuse 02/10/2025 Verbal Abuse 02/10/2025 Sex and Gender Information Value Date Recorded Sex Assigned at Male 01/27/2025 10:25 AM EDT Legal Sex Male 6:06 AM EST Gender Identity Male 01/27/2025 10:25 AM EDT Sexual Orientation Straight 02/10/2025 1: 47 PM EDT documented as of this encounter Last Filed Vital Signs Vital Sign Reading Time Taken Comments Blood Pressure 122/70 04/19/2025 11:07 AM EDT Pulse 66 04/19/2025 11:07 AM EDT Temperature 36.6 C (97.9 F) 04/19/2025 11:07 AM EDT Respiratory Rate - - Oxygen Saturation 98% 04/19/2025 11: 07 AM EDT Inhaled Oxygen Concentration - - Weight 76.1 kg (167 lb 12.8 oz) 025 11:07 AM EDT Height 175.3 cm (5' 9 ) 04/19/2025 11:0 7 AM EDT Body Mass Index 24.78 04/19/2025 11:07 AM EDT documented in this encounter Progress Notes * Shakeel Menard MD - 04/19/2025 11:15 AM EDT COMPLAINT for preventative checkup. IDENTIFIER: Dominick Minaya is a 64 y.o. old male. HPI: CML appears to be stable on Gleevec. Microcytic anemia on labs done recently. Hypertriglyceridemia on diet. ROS: GENERAL: No malaise, significant weight loss or fever HEENT: No changes in hearing or vision, nose bleeds or other nasal problems NECK: No lumps, goiter, pain or significant neck swelling RESPIRATORY: No cough, wheezing or shortness of breath CARDIOVASCULAR: No chest pain, leg swelling or palpitations GI: No abdominal discomfort, blood in stools or black stools MUSCULOSKELETAL: No joint pain or swelling, back pain, or muscle pain. SKIN: No lesions, rash or itching NEURO: No persistent headache, syncope, seizures, weakness or numbness PAST MEDICAL HISTORY: Patient Active Problem List Diagnosis Date Noted CML (chronic myelocytic leukemia) ([facility] V24, [facility] V28) 02/01/2025 Microcytic anemia 02/01/2025 Hypertriglyceridemia 04/14/2018 Mid back pain 04/14/2018 Seborrheic keratosis 09/24/2017 Allergic rhinitis 03/25/2017 Past Surgical History: Procedure Laterality Date COLONOSCOPY OTHER SURGICAL HISTORY Bilateral PROCEDURE: [place] ARTHRS KNE SURG W/MENISCECTOMY MED/LAT W/SHVG SOCIAL HISTORY: Social History Tobacco Use Smoking status: Never Smokeless tobacco: Never Substance Use Topics Alcohol use: Yes Comment: SOCIALLY FAMILY HISTORY: Family History Problem Relation Name Age of Onset Diabetes Mother Other (Other: Other) Father MEDICATIONS DISCONTINUED/REORDERED: There are no discontinued medications. ACTIVE MEDICATIONS: Outpatient Medications Marked as Taking for the 04/19/25 encounter (Office Visit) with Shakeel Menard MD Medication Sig Dispense Refill imatinib (GLEEVEC) 400 mg tablet Take 1 tablet (400 mg total) by mouth 1 (one) time each day Take with a large glass of water. You may dissolve in water or apple juice to make swallowing easier. Should be taken with a meal. Do not take on an empty stomach. 30 tablet 6 LUTEIN ORAL Take by mouth 1 (one) time each day. ALLERGIES: No Known Allergies PHYSICAL EXAM: Vitals: 04/19/25 1107 BP: 122/70 Pulse: 66 Temp: 36.6 ??C (97.9 ??F) SpO2: 98% APPEARANCE: Alert and in no acute distress EARS: External ears normal. Some wax buildup in bilateral left canal present. NOSE/SINUS: Nares normal. Septum midline. Mucosa normal. No drainage or sinus tenderness. MOUTH/THROAT: no erythema or exudates NECK: Neck supple, no adenopathy HEART: RRR with normal S1 and S2, no murmurs LUNG: clear to auscultation ABDOMEN: Bowel sounds normoactive, no bruits, soft, non-tender, without organomegaly or palpable masses EXTREMITIES: Extremities warm and well perfused without clubbing, cyanosis, or edema NEURO: Awake, alert and oriented x 3 nonfocal. LABS: Lab Results Component Value Date WBC 8.7 03/15/2025 HGB 11.0 (L) 03/15/2025 HCT 38.4 (L) 03/15/2025 MCV 71.5 (L) 03/15/2025 Lab Results Component Value Date NA 143 03/15/2025 K 4.3 03/15/2025 CO2 26 03/15/2025 CL 110 03/15/2025 BUN 18 03/15/2025 ALKPHOS 117 03/15/2025 No results found for: TSH Lab Results Component Value Date CHOL 189 01/21/2024 LDL 119 (A) 01/21/2024 HDL 49 01/21/2024 TRIG 106 01/21/2024 No components found for: URINELEUK , URINENITR , URINEPRO , URINEPH , URINEBLD , URINESG , URINEKET , URINEBILI , URINEGLUC IMAGING: IMPRESSION: 1. Adult general medical examination 2. CML (chronic myelocytic leukemia) ([facility] V24, [facility] V28) 3. Hypertriglyceridemia PLAN: CML is stable on Gleevec. Labs ordered. Hypertriglyceridemia advised low-carb diet. Current on colon exam. documented in this encounter Plan of Treatment Upcoming Encounters Date Type Department Care Team (Late st Contact Info) Description 08/15/2025 10:00 AM EDT Office Visit [facility] Hematology Oncology [address] [place] [address] Magda Milton MD [address] [place] [address] Scheduled Orders Name Type Priority Associated Diagnoses Orde r Schedule Lipid panel with reflex to direct LDL Lab Routine Adult general medical examination CML (chronic myelocytic leukemia) ([facility] V24, [facility] V28) Hypertriglyceridemia 1 Occurrences starting 04/19/2025 until 04/19/2026 Thyroid stimulating hormone Lab Routine Adult general medical examination CML (chronic myelocytic leukemia) ([facility] V24, [facility] V28) Hypertriglyceridemia 1 Occurrences starting 04/19/2025 until 04/19/2026 Prostate specific antigen screen Lab Routine Adult general medical examination CML (chronic myelocytic leukemia) ([facility] V24, [facility] V28) Hypertriglyceridemia 1 Occurrences starting 04/19/2025 until 04/19/2026 documented as of this encounter Visit Diagnoses Diagnosis Adult general medical examination- Primary Unspecified general medical examination CML (chronic myelocytic leukemia) ([facility] V24, [facility] V28) Chronic myeloid leukemia, without mention of having achieved remission Hypertriglyceridemia Pure hyperglyceridemia documented in this encounter Additional Health Concerns Assessment Noted Time PHQ-9 Depression Total Score: 0 04/12/20 25 8:42 AM EDT documented as of this encounter Care Teams Range Master Relationship Specialty Start Date End Date Shakeel Menard MD [address] [address] PCP - General Internal Medicine 11/23/18 documented as of this encounter
--- NOTE | ~2025-04-22 | NM_ITS ---
EXERCISE MYOCARDIAL PERFUSION STUDY INDICATION: Shortness of breath TECHNIQUE: The patient was brought in for an exercise perfusion study on 04/22/2025. Patient performed exercise as per Petey protocol and was injected 25 mCi of sestamibi once target heart rate was achieved. Images were obtained using the SPECT gamma camera interlaced with the gating device. Images were obtained in supine position. Resting perfusion study was performed on 04/27/2025. Patient was administered 25 mCi of sestamibi intravenously at rest. Images were then obtained in supine position. Total DLP 67 mGy-cm. Images were processed with the software and compared side to side in short axis, horizontal long axis and vertical long axis views. FINDINGS: Raw aquisition reviewed. The stress perfusion study showed no significant perfusion abnormality. Both uncorrected as well as CT attenuation corrected images were reviewed. The gated study shows normal LV systolic function with calculated LVEF of 63%. LV cavity is normal in size. The gated study shows normal wall thickening and contraction of segments. Resting study shows no significant perfusion abnormality. Gating at rest reveals normal wall motion with ejection fraction at 65%. The findings are consistent with no clear reversible or fixed perfusion abnormality. NM/NM cardiolite stress test IMPRESSION: 1. Myocardial perfusion imaging study shows normal myocardial perfusion. 2. Gated LVEF is 63% during stress and 65% during rest. 3. Transient ischemic dilatation not present. EKG component of the test reported separately. Electronically signed by: Bayron Nava MD 04/27/2025 03:08 PM EDT
--- NOTE | 2025-04-22 11:20 | CA_ITS ---
Acquisition Time: 2025-04-22 10:14:25 Total Exercise Time: 00:07:05 Test Indications: Dyspnea Medications: DASATINIB Protocol: IMMANUEL Max HR: 144 BPM 91% of Pred: 157 BPM Max BP: 158/60 mmHG Max Work Load: 8.6 METS Exercise stress test with exercise 7 mins 5 secs of Immanuel Protocol, achieving 90% MPHR, with reports of SOB, no chest pain, with isolated PVCs, with normotensive response to exercise. Without any EKG changes meeting criteria for ischemia. In recovery, pt had a 14 beats SVT rate of 134- asymptomatic. Nuclear images pending. Test reviewed with Dr. Saldaña. Referred By: Bayron Nava Electronically Signed By: Kenroy Cabrales
== END ==
LOC: HO.CARD 09:48
PROVIDERS: PCP Internal Medicine; Visit Provider Internal Medicine
DX: Z09 Encounter for follow-up examination after completed treatment for conditions other than malignant neoplasm (principal); R07.2 Precordial pain; R06.02 Shortness of breath; C92.10 Chronic myeloid leukemia, BCR/ABL-positive, not having achieved remission
CPT/HCPCS: 78452; 93017; A9500

== ENCOUNTER → 2025-04-22 11:20 | Outpatient (BNV) | payer OTHER, SELFPAY | PROVIDERS: PCP Internal Medicine | DX: R06.02 Shortness of breath (principal); I49.3 Ventricular premature depolarization | CPT/HCPCS: 78452; 93016; 93018 ==

== ENCOUNTER 2025-05-13 14:17 | Outpatient (AMB) | payer OTHER, SELFPAY ==
--- NOTE | 2025-05-13 14:22 | A.OFFVIS_ITS ---
Vital Signs 05/13/25 14:23 Height 5 ft 9 in Weight 172 lb 2.896 oz BMI 25.4 BP 110/70 Blood Pressure Location Lt brachial Position Sitting Pulse 74 Pulse Source Pulse Oximeter Intake Visit Reasons: follow up testings Skid Machine Operator Required: No Accompanied by: Spouse Allergies No Known Allergies Allergy (Verified 02/07/25 13:52) Medication List - Last Reconciled 05/13/25 by Kenroy Cabrales NP imatinib 400 mg PO DAILY HPI Comments Details: This is a 64-year-old male patient coming in for a follow-up visit. Patient with a history of CML currently in remission. Patient was previously seen in the office for shortness of breath and chest tightness. Subsequently after patient underwent an echocardiogram that showed possible basal inferior hypokinesis and therefore underwent a myocardial perfusion study. Patient states that he has not been exercising or doing anything exertional since that episode. Patient is walking currently but is not getting any symptoms with this. Patient states that when he was playing [employer] ball, he had shortness of breath as well as some chest tightness with this. Patient states that he is also going to pulmonology as his recent x-ray showed COPD. Patient also states that he was on dasatinib for cancer treatment which was stopped after these episodes. Patient is currently denying any exertional symptoms of chest pain, shortness of breath, palpitations, dizziness, orthopnea, PND, leg edema, presyncope, or syncope. [facility] Medical History CML (chronic myelocytic leukemia) Enlarged heart COPD (chronic obstructive pulmonary disease) Surgical History H/O knee surgery Family History Mother CHF (congestive heart failure) Pacemaker Stroke Diabetes Father Bladder cancer Social History Alcohol intake: former Patient Tobacco Use Status: Never used Tobacco Review of Systems Const Denies chills, Denies fatigue, Denies fever(s), Denies frequent falls, Denies weakness, Denies weight gain and Denies weight loss ENT Denies dizziness Card Denies chest pain, Denies leg edema, Denies lightheadedness, Denies palpitations, Denies dyspnea and Denies dyspnea on exertion Resp Denies cough, Denies dyspnea and Denies dyspnea on exertion GI Denies hematochezia Musc Denies abnormal gait, Denies muscle weakness, Denies numbness, Denies radiating pain into limb and Denies tingling Neuro Denies abnormal gait, Denies dizziness, Denies frequent falls, Denies numbness, Denies tingling and Denies weakness Endo Denies fatigue and Denies palpitations Physical Exam Vital Signs: Last Vital Signs Pulse 74 05/13/25 14:23 BP 110/70 05/13/25 14:23 BMI result Body Mass Index 25.4 Const General: cooperative, healthy appearing, comfortable and no acute distress Orientation/consciousness: patient oriented x3 HEENT Head: Yes normal to inspection Neck Neck: Yes normal visual inspection, Yes trachea midline and Yes supple Chest Chest palpation & inspection: normal inspection of the chest Resp Effort & Inspection: normal respiratory effort Auscultation: clear to auscultation bilaterally, no crackles, no rales, no rhonchi and no wheezes Cardio Jugular venous distension: no JVD Palpation: normal PMI Rate: regular rate Rhythm: regular rhythm Heart sounds: S1 normal heart sound present, S2 normal heart sound present, no click, no gallops, no murmurs and no rubs Peripheral pulses: Peripheral pulses 2+ throughout GI Inspection: Yes normal to inspection Palpation (GI): Soft to palpation Auscultation: normal bowel sounds Skin General skin exam: no rashes or lesions noted Neuro General: patient oriented x3 Extrem General: Yes normal to inspection, No no pedal edema and No calf tenderness Psych Appearance: grossly normal Mental Status: mental status grossly normal Speech and movement: Normal speech and movement present Assessment & Plan Assessment & Plan (1) SOB (shortness of breath): Code(s): R06.02 - Shortness of breath Category: Medical (2) Abnormal echocardiogram: Code(s): R93.1 - Abnormal findings on diagnostic imaging of heart and coronary circulation Category: Medical Plan 02/07/2025-patient underwent echo study that showed normal LV systolic function with an ejection fraction at 67%, with possible basal inferior hypokinesis. 04/22/2025-patient underwent a myocardial perfusion study that showed normal perfusion. Patient states that he has not been exercising or doing any thing exertional since his episode of shortness of breath and chest tightness with playing pickleball. Patient is currently walking with no symptoms. However, due to his limited activity at this time, hard to assess if patient truly has any symptoms. His symptoms could be multi factorial given his finding of COPD on x-ray, and anemia with PCP. We discussed in length about this. Recommended coronary calcium score as the patient and his would like to rule out any cardiac etiology. Blood pressure within normal limits. Patient states his lipid panel with PCP has been with a normal limits as well. Advised heart healthy diet and management of vascular risk factors. Follow-up after completion of coronary calcium score. In the interim, patient will call the office with any concerns or change in symptoms. This note was generated using voice recognition software. While every effort has been made to ensure accuracy and proper staff trainer, there may be occasional errors that could affect the content or meaning of the described symptoms. Orders: Orders CT Coronary Calcium Score Today R06.02 - Shortness of breath Coding Level of Care Code Est Pt Level 4 (79984) Complex EM visit Add On G2211 Diagnoses SOB (shortness of breath) R06.02 Abnormal echocardiogram R93.1 Time Spent (min) 31 Comment Time spent in reviewing the chart, test results, assessment, counseling and documentation.
[2025-05-13 14:23] VITALS: BP 110/70; PULSE 74; BMI 25.4
== END 2025-05-13 15:03 | disposition home or self-care (01) ==
LOC: HO.HCS 14:18
PROVIDERS: PCP Internal Medicine
DX: R06.02 Shortness of breath (principal); R93.1 Abnormal findings on diagnostic imaging of heart and coronary circulation
CPT/HCPCS: 99214; G2211

== ENCOUNTER 2025-05-23 13:56 | Outpatient (AMB) | payer OTHER, SELFPAY ==
[2025-05-23 14:18] VITALS: BP 120/60; PULSE 80; O2SAT 97; BMI 25.2
--- NOTE | 2025-05-23 14:18 | MHC.OFFVIS ---
Vital Signs 05/23/25 14:18 Height 5 ft 9 in Weight 171 lb BMI 25.2 BP 120/60 Blood Pressure Location Rt brachial Position Sitting Pulse 80 Pulse Source Pulse Oximeter Pulse Oximetry (%) 97 Oxygen Delivery Method Room Air Intake Visit Reasons: copd Allergies No Known Allergies Allergy (Verified 05/23/25 14:26) HPI HPI copd: Details: 64-year-old gentleman, nonsmoker, with no prior personal or family history of lung disease, currently undergoing treatment for CML referred for evaluation of episode of dyspnea and chest pressure that occurred after patient played [employer] ball with no further recurrence. Patient states that he had recent negative cardiac workup. His workup did include chest x-ray which was read as consistent with COPD. Patient denies exposure to industrial dusts. Patient denies recent respiratory symptoms. [facility] Medical History CML (chronic myelocytic leukemia) Enlarged heart COPD (chronic obstructive pulmonary disease) Surgical History H/O knee surgery Family History Mother CHF (congestive heart failure) Pacemaker Stroke Diabetes Father Bladder cancer Social History Alcohol intake: former Patient Tobacco Use Status: Never used Tobacco Review of Systems Const Denies daytime sleepiness, Denies excessive sweating, Denies fatigue, Denies fever(s), Denies lethargy, Denies malaise, Denies night sweats, Denies snoring and Denies weight loss Eyes Denies blurry vision and Denies itchy eyes ENT Denies nasal congestion, Denies post nasal drip, Denies sinus pain, Denies sinus pressure and Denies other ( Thrush) Card Denies chest pain, Denies pedal edema, Denies dyspnea, Denies orthopnea and Denies paroxysmal nocturnal dyspnea Resp Denies cough, Denies hemoptysis, Denies excessive phlegm production, Denies dyspnea, Denies snoring and Denies wheezing GI Denies abdominal pain and Denies heartburn Musc Denies myalgias, Denies arthralgias and Denies joint swelling Skin/Breast Denies rash Neuro Denies memory loss and Denies seizure-like activity Psych Denies abnormal sleep pattern, Denies anxiety and Denies memory loss Endo Denies excessive sweating, Denies fatigue and Denies heat intolerance Kristopher/Lymph Denies easy bruising Aller/Immun Denies itchy eyes, Denies seasonal rhinorrhea and Denies wheezing Physical Exam Vital Signs: Last Vital Signs Pulse 80 05/23/25 14:18 BP 120/60 05/23/25 14:18 Pulse Ox 97 05/23/25 14:18 Oxygen Delivery Method Room Air 05/23/25 14:18 BMI result Body Mass Index 25.2 Const General: no acute distress and alert Nutritional Appearance: not obese Orientation/consciousness: Other orientation findings ( oriented) HEENT Head: Yes atraumatic Eyes General: appearance normal, both eyes and all related structures Sclerae: sclerae normal EOM: EOMs intact bilaterally Neck Neck: Yes supple Lymphatic: no lymphadenopathy noted Resp Effort & Inspection: normal respiratory effort and no use of accessory muscles Auscultation: clear to auscultation bilaterally Cardio Rate: regular rate Rhythm: regular rhythm Heart sounds: no gallops, no murmurs and no rubs Skin General skin exam: other ( warm) Extrem General: No clubbing, No cyanosis and No edema Assessment & Plan Assessment & Plan (1) SOB (shortness of breath): Code(s): R06.02 - Shortness of breath Category: Medical Plan: Unclear etiology. Results of chest x-ray reviewed. Will obtain full PFT for further evaluation. Coding Level of Care Code New Pt Level 3 (62772) Diagnoses SOB (shortness of breath) R06.02
--- OUTSIDE RECORDS SUMMARY | 2025-05-23 14:47 | XMS_ITS | Clinical Summary ---
Author Organization [facility] Address [address] [place] [address] Care Team Providers Care Cloth Calender Name Role Phone Quinton Rosales Primary Care [...] 61 11/01/2010 11:45 AM EST Temperature 36.4 C (97.5 F) 11/01/2010 11:45 AM EST Respiratory Rate - - Oxygen [...] Vaccine (2023-2 5 season) 2024 Influenza (#1) 2025 RSV (1 - 1-dose 75+ series) 2036 [...] this topic Zoster (Zostavax) Discontinued Care Teams Cloth Calender Relationship Specialty Start Date End Date Quinton Rosales PCP - General 06/09/23
--- OUTSIDE RECORDS SUMMARY | 2025-05-23 14:47 | XMS_ITS | Clinical Summary ---
Author Organization [facility] Address [address] [place] [address] Phone Care Team Providers Care Body Work Auto Trimmer Name Role Phone Shakele Menard MD Primary Care Provider [phone] Allergies No known active allergies Medications LUTEIN ORAL Take by mouth 1 (one) time each day. Active dasatinib (SPRYCEL) 100 mg tablet Take 1 tablet (100 mg total) by mouth 1 (one) time each day 4 Active imatinib (GLEEVEC) 400 mg tabletIndicatio ns:CML (chronic myelocytic leukemia) ([facility] V24, [facility] V28) Take 1 tablet (400 mg total) by mouth 1 (one) time each day Take with a large glass of water. You may dissolve in water or apple juice to make swallowing easier. Should be taken with a meal. Do not take on an empty stomach. 30 tablet 6 5 08/16/20 25 Active Active Problems Problem Noted Date Diagnosed Date CML (chronic myelocytic leuk emia) ([facility] V24, [facility] V28) 02/01/2025 Microcytic anemia 02/01/2025 Hypertriglyceridemia 04/14/2018 Mid back pain 04/14/2018 Seborrheic keratosis 09/24/2017 Allergic rhinitis 03/25/2017 Encounters Date Type Department Care Team Description 04/19/2025 11:15 AM EDT Office Visit Internal Medicine - [place] [address] [facility] [address] [place] [address] Shakeel Menard MD Adult general medical examination (Primary Dx); CML (chronic myelocytic leukemia) ([facility] V24, [facility] V28); Hypertriglyceridemia 03/11/2025 Telephone Internal Medicine - [place] [address] [facility] [address] [place] [address] Shakeel Menard MD 03/07/2025 Patient Outreach [facility] Hematology Oncology [address] [place] [address] Christopher Schrader RN from Last 3 Months Immunizations Name Administration Dates Next Due Tdap Tetanus diptheria acell ular pertussis (Boostrix; Adacel) 7yo and older 03/04/2019 Surgical History Surgery Date Site/Laterality Comments OTHER SURGICAL HISTORY Bilateral PROCEDURE: ME ARTHRS KNE SURG W/MENISCECTOMY MED/LAT W/SHVG COLONOSCOPY Medical History Medical History Date Comments History of cellulitis 06/14/2013 DX:History of cellulitis; COMMENT: and abscess of leg History of gastroenteritis 04/14/2018 DX:Hi story of gastroenteritis Mid back pain 04/14/2018 DX:Mid back pain Allergic rhinitis 03/25/2017 DX:Allergic rh initis Hypertriglyceridemia 04/14/2018 DX:Hypertri glyceridemia CML (chronic myeloid leukemi a) ([facility] V24, [facility] V28) IN REMISSION SOB (shortness of breath) on exertion SPRYCEL D/C TO SEE IF CAUSE, PATIENT FOLLOWING UP WITH PULM. Anemia Family History Medical History Relation Name Comments [...] Record ed Within the last 3 months, ho w many times did you visit the emergency [...] care for your loved ones. For example, child development director or elderly care for an older adult? [...] Orientation Straight 02/10/2025 1: 47 PM EDT Obstetrics History Last Filed Vital Signs Vital Sign Reading Time Taken Comments Blood Pressure 122/70 04/19/2025 11:07 AM EDT Pulse 66 04/19/2025 11:07 AM EDT Temperature 36.6 C (97.9 F) 04/19/2025 11:07 AM EDT Respiratory Rate 16 02/10/2025 3:03 PM EDT Oxygen Saturation 98% 04/19/2025 11: 07 AM EDT Inhaled Oxygen Concentration - - Weight 76.1 kg (167 lb 12.8 oz) 025 11:07 AM EDT Height 175.3 cm (5' 9 ) 04/19/2025 11:0 7 AM EDT Body Mass Index 24.78 04/19/2025 11:07 AM EDT Plan of Treatment Upcoming Encounters Date Type Department Care Team (Late st Contact Info) Description 08/15/2025 10:00 AM EDT Office Visit [facility] Hematology Oncology [address] [place] [id number] Magda Milton MD [address] [place] [address] Health Maintenance Due Date Last Done Comments Pneumococcal Vaccine: 50+ Years (1 of 2 - PCV) 1980 RSV Immunization Adult Patients (1 - Risk 60-74 years 1-dose series) 2021 HIV Screening 10/11/2022 Hepatitis C Screening 10/11/2022 COVID-19 Vaccine (5 - Moderna risk 2023- season) 2024 07/01/2024, 08/12/2023, 07/26/2022, Additional history exists Influenza Vaccine (#1) 2025 , 08/12/2023, 07/26/2022, Additional history exists Social Influencers of Health Screening 04/12/2026 04/12/2025 DTaP,Tdap,and Td Vaccines (2 - Td or Tdap) 03/04/2029 03/04/2019 Cholesterol Screening (Lipid Panel) 05/05/2030 05/05/2025, 01/21/2024 Colorectal Cancer Screening: Colonoscopy 01/13/2034 01/14/2024 Zoster Vaccines Completed 06/17/2019, 04/05/2019 Depression Screening Completed 04/12/2025 HIB Vaccines Aged Out No longer eligi [...] Procedure Name Priority Date/Time Associated Diagnosis Comments LIPID PANEL WITH REFLEX TO DIRECT LDL Routine 05/05/2025 9:24 AM EDT Adult general medical examination CML (chronic myelocytic leukemia) ([facility]/HCC V24, CMS/HCC V28) Hypertriglyceridem ia THYROID STIMULATING HORMONE Routine 05/05/2025 9:24 AM EDT Adult general medical examination CML (chronic myelocytic leukemia) (CMS/HCC V24, CMS/HCC V28) Hypertriglyceridem ia PROSTATE SPECIFIC ANTIGEN SCREEN Routine 05/05/2025 9:24 AM EDT Adult general medical examination CML (chronic myelocytic leukemia) (CMS/HCC V24, CMS/HCC V28) Hypertriglyceridem ia CBC WITH AUTO DIFFERENTIAL Routine 03/15/2025 9:14 AM EDT CML (chronic myelocytic leukemia) (CMS/HCC V24, CMS/HCC V28) COMPREHENSIVE METABOLIC PANEL Routine 03/15/2025 9:14 AM EDT CML (chronic myelocytic leukemia) (CMS/HCC V24, CMS/HCC V28) CBC AND DIFFERENTIAL Routine 03/15/2025 9:14 AM EDT CML (chronic myelocytic leukemia) ([facility] V24, [facility] V28) BCR ABL1 KINASE PCR, QUANTITATIVE Routine 03/15/2025 9:14 AM EDT CML (chronic myelocytic leukemia) ([facility] V24, [facility] V28) HM COLONOSCOPY Routine 01/14/2024 from Last 3 Months or Most Recently Relevant to Health Maintenance Results * (ABNORMAL) Prostate specific antigen screen (05/05/2025 9:24 AM EDT) Pathologist [facility] PSA 4.12(H) 0.00 - 4.00 ng/mL LAB CHEMISTRY METHOD 05/05/2025 2:13 PM EDT [facility] Blood Venous blood specimen / Unknown Venipuncture / Unknown 05/05/2025 9:24 AM EDT 05/05/2025 9:24 AM EDT Narrative [facility] - 05/05/2025 2:13 PM EDT The Siemens Advia Centaur Chemiluminescent Immunoassay is used. Results obtained with different assay methods or kits cannot be used interchangeably. Results cannot be interpreted as absolute evidence of the presence or absence of malignant disease. us Shakeel Menard MD LAB BLOOD ORDERABLES Final Resul t [facility] [address] [place] [address], [place] [phone] * Lipid panel with reflex to direct LDL (05/05/2025 9:24 AM EDT) Pathologist [facility] Cholesterol 160 0 - 200 mg/dL LAB CHEMISTRY METHOD 05/05/2025 12:29 PM EDT [facility] Triglycerides 104 0 - 150 mg/dL LAB CHEMISTRY METHOD 05/05/2025 12:29 PM EDT [facility] HDL 46 >=40 mg/dL LAB CHEMISTRY METHOD 05/05/2025 12:29 PM EDT [facility] LDL Calculated 93 0 - 100 mg/dL LAB CHEMISTRY METHOD 05/05/2025 12:29 PM EDT [facility] VLDL Cholesterol Mane 20.8 mg/dL LAB CHEMISTRY METHOD 05/05/2025 12:29 PM EDT [facility] Non HDL Chol. (LDL+VLDL) 114 <145 mg/dL LAB CHEMISTRY METHOD 05/05/2025 12:29 PM EDT [facility] Chol/HDL Ratio 3.5 0.0 - 4.4 LAB CHEMISTRY METHOD 05/05/2025 12:29 PM EDT [facility] Blood Venous blood specimen / Unknown Venipuncture / Unknown 05/05/2025 9:24 AM EDT 05/05/2025 9:24 AM EDT us Shakeel Menard MD LAB BLOOD ORDERABLES Final Resul t Performing Organization Address City/[facility]/ZIP Co de Phone Number [facility] [address] [place] [address], [place] [phone] * Thyroid stimulating hormone (05/05/2025 9:24 AM EDT) TSH 1.99 0.40 - 4.00 mcIU/mL LAB CHEMISTRY METHOD 05/05/2025 1:40 PM EDT [facility] Blood Venous blood specimen / Unknown Venipuncture / Unknown 05/05/2025 9:24 AM EDT 05/05/2025 9:24 AM EDT us Shakeel Menard MD LAB BLOOD ORDERABLES Final Resul t [facility] [address] [place] [address], [place] [phone] * BCR ABL1 kinase molecular study, quantitative (03/15/2025 9:14 AM EDT) Scan Result See Scanned Result 03/22/2025 8:48 AM EDT [facility] Blood Venous blood specimen / Unknown Venipuncture / Unknown 03/15/2025 9:14 AM EDT 03/15/2025 11:16 AM EDT Magda Milton MD LAB MOLECULAR DIAGNOSTICS OR DERABLES Final Result [facility] * (ABNORMAL) CBC auto differential (03/15/2025 9:14 AM EDT) Pathologist [facility] WBC 8.7 4.8 - 10.8 K/mcL LAB HEMETOLOGY METHOD 03/15/2025 11:45 AM [facility] RBC 5.40 4.50 - 5.50 M/mcL LAB HEMETOLOGY METHOD 03/15/2025 11:45 AM [facility] Hemoglobin 11.0(L) 13.5 - 17.5 g/dL LAB HEMETOLOGY METHOD 03/15/2025 11:45 AM [facility] Hematocrit 38.4(L) 42.0 - 54.0 % LAB HEMETOLOGY METHOD 03/15/2025 11:45 AM [facility] MCV 71.5(L) 79.0 - 98.0 FL LAB HEMETOLOGY METHOD 03/15/2025 11:45 AM [facility] MCH 20.5(L) 27.0 - 32.0 pcg LAB HEMETOLOGY METHOD 03/15/2025 11:45 AM [facility] MCHC 28.6(L) 32.0 - 37.0 g/dL LAB HEMETOLOGY METHOD 03/15/2025 11:45 AM [facility] RDW 14.8 11.0 - 15.0 % LAB HEMETOLOGY METHOD 03/15/2025 11:45 AM [facility] Platelets 399 130 - 400 K/mcL LAB HEMETOLOGY METHOD 03/15/2025 11:45 AM [facility] MPV 9.2 7.0 - 11.0 FL LAB HEMETOLOGY METHOD 03/15/2025 11:45 AM [facility] NRBC 0.0 <1.0 % LAB HEMETOLOGY METHOD 03/15/2025 11:45 AM [facility] NRBC Absolute 0.00 <0.10 K/mcL LAB HEMETOLOGY METHOD 03/15/2025 11:45 AM [facility] Neutrophils Relative 50.6 % LAB HEMETOLOGY METHOD 03/15/2025 11:45 AM [facility] Lymphocytes Relative 34.4 % LAB HEMETOLOGY METHOD 03/15/2025 11:45 AM [facility] Monocytes Relative 9.1 % LAB HEMETOLOGY METHOD 03/15/2025 11:45 AM [facility] Eosinophils Relative 4.7 % LAB HEMETOLOGY METHOD 03/15/2025 11:45 AM [facility] Basophils Relative 0.9 % LAB HEMETOLOGY METHOD 03/15/2025 11:45 AM [facility] Immature Granulocytes Relative 0.3 % LAB HEMETOLOGY METHOD 03/15/2025 11:45 AM [facility] Neutrophils Absolute 4.39 1.50 - 7.00 K/mcL LAB HEMETOLOGY METHOD 03/15/2025 11:45 AM [facility] Lymphocytes Absolute 2.99 1.00 - 5.00 K/mcL LAB HEMETOLOGY METHOD 03/15/2025 11:45 AM [facility] Monocytes Absolute 0.79 0.20 - 1.00 K/mcL LAB HEMETOLOGY METHOD 03/15/2025 11:45 AM EDT [facility] Eosinophils Absolute 0.41 0.00 - 0.50 K/mcL LAB HEMETOLOGY METHOD 03/15/2025 11:45 AM T [facility] Basophils Absolute 0.08 0.00 - 0.20 K/mcL LAB HEMETOLOGY METHOD 03/15/2025 11:45 AM T [facility] Immature Granulocytes Absolute 0.03 0.00 - 0.03 K/[facility] LAB HEMETOLOGY METHOD 03/15/2025 11:45 AM [facility] Blood Venous blood specimen / Unknown Venipuncture / Unknown 03/15/2025 9:14 AM EDT 03/15/2025 11:16 AM EDT Magda Milton MD LAB BLOOD ORDERABLES Final R esult [facility] [address] [place] [address], * Comprehensive metabolic panel (03/15/2025 9:14 AM EDT) Sodium 143 133 - 145 mmol/L LAB CHEMISTRY METHOD 03/15/2025 11:49 AM [facility] Potassium 4.3 3.5 - 5.5 mmol/L LAB CHEMISTRY METHOD 03/15/2025 11:49 AM [facility] Chloride 110 96 - 110 mmol/L LAB CHEMISTRY METHOD 03/15/2025 11:49 AM [facility] CO2 26 21 - 32 mmol/L LAB CHEMISTRY METHOD 03/15/2025 11:49 AM [facility] Anion Gap 7 3 - 11 LAB CHEMISTRY METHOD 03/15/2025 11:49 AM [facility] Glucose 96 70 - 100 mg/dL LAB CHEMISTRY METHOD 03/15/2025 11:49 AM [facility] BUN 18 5 - 25 mg/dL LAB CHEMISTRY METHOD 03/15/2025 11:49 AM [facility] Creatinine 0.76 0.70 - 1.30 mg/dL LAB CHEMISTRY METHOD 03/15/2025 11:49 AM [facility] eGFR 101 >=60 mL/min/1. 73m2 LAB CHEMISTRY METHOD 03/15/2025 11:49 AM [facility] Comment:Calculation based on the Chronic Kidney Disease Epidemiology Collaboration (CKD-EPI) equation refit without adjustment for race. BUN/Creatinine Ratio 23.7 LAB CHEMISTRY METHOD 03/15/2025 11:49 AM [facility] Calcium 8.8 8.5 - 10.5 mg/dL LAB CHEMISTRY METHOD 03/15/2025 11:49 AM [facility] AST (SGOT) 17 10 - 42 unit/L LAB CHEMISTRY METHOD 03/15/2025 11:49 AM [facility] ALT (SGPT) 22 10 - 60 unit/L LAB CHEMISTRY METHOD 03/15/2025 11:49 AM [facility] Alkaline Phosphatase 117 42 - 121 unit/L LAB CHEMISTRY METHOD 03/15/2025 11:49 AM [facility] Total Protein 6.4 6.0 - 8.0 g/dL LAB CHEMISTRY METHOD 03/15/2025 11:49 AM [facility] Albumin 3.3 3.2 - 5.0 g/dL LAB CHEMISTRY METHOD 03/15/2025 11:49 AM [facility] Total Bilirubin 0.4 0.0 - 1.4 mg/dL LAB CHEMISTRY METHOD 03/15/2025 11:49 AM [facility] Blood Venous blood specimen / Unknown Venipuncture / Unknown 03/15/2025 9:14 AM EDT 03/15/2025 11:17 AM EDT Magda Milton MD LAB BLOOD ORDERABLES Final R esult [facility] ([facility] [address] [place] [address], * Colonoscopy (01/14/2024) Colonoscopy no interpretation , abstracted Anatomical Region Laterality Modality Other Historical Provider HEALTH MAINTENANCE Final Result from Last 3 Months or Most Recently Relevant to [place] [id number] [facility] [address] [place] [address] Care Teams Body Work Auto Trimmer Relationship Specialty Start Date End Date Shakeel Menard MD [address] [facility] [address] [place] [address] PCP - General Internal Medicine 11/23/18
--- OUTSIDE RECORDS SUMMARY | 2025-05-23 14:47 | XMS_ITS | Encounter Summary ---
Author Organization [facility] Address [address] [place] [address] Care Team Providers Care Glue Clamp Operator Name Role Phone Shakeel Menard MD Primary Care Provider Unavailab le Reason for Visit * Reason Comments Rash Encounter Details Date Type Department Care Team Description 04/05/[address] [facility] Oncology Services [address] [place] [address] Christopher Schrader RN Rash Social History Tobacco [...] Patient here for lab work stopped at front edger and asked to see this commercial insurance underwriter to discuss side effectfrom [place] he was [...] on filedocumented in this encounter Care Teams Glue Clamp Operator Relationship Specialty Start Date End Date Shakeel Menard MD PCP - General Internal Medicine 02/09/24 documented as of this encounter
== END 2025-05-23 14:46 | disposition home or self-care (01) ==
LOC: HO.HPS 13:57
PROVIDERS: PCP Internal Medicine; Visit Provider Internal Medicine Pulmonary Disease
DX: R06.02 Shortness of breath (principal)
CPT/HCPCS: 99203

== ENCOUNTER 2025-06-01 07:54 | Outpatient (REF) | payer OTHER, SELFPAY ==
[2025-06-01 07:31] VITALS: PULSE 78; O2SAT 100
--- OUTSIDE RECORDS SUMMARY | 2025-06-01 07:56 | XMS_ITS | Clinical Summary ---
Author Organization [facility] Address [address] [place] [address] Care Team Providers Care Car Parker Name Role Phone Quinton Rosales Primary Care [...] - 1-dose 75+ series) 2036 HPV Vaccine (No Doses Required) Completed Hep A Aged Out No longer eligi [...] this topic Zoster (Zostavax) Discontinued Care Teams Car Parker Relationship Specialty Start Date End Date Quinton Rosales PCP - General 06/09/23
--- OUTSIDE RECORDS SUMMARY | 2025-06-01 07:56 | XMS_ITS ---
Author Name [facility] Organization Unknown Care Team Organization Name Specialty Phone Email Start Date End Da te [facility] SHANI LINARES Primary Care 09/10/2022 06/21/20 24
--- OUTSIDE RECORDS SUMMARY | 2025-06-01 07:56 | XMS_ITS | Clinical Summary ---
Author Organization [facility] Address [address] [place] [address] Phone Care Team Providers Care Campus Coordinator Name Role Phone Shakeel Menard MD Primary Care Provider [phone] Allergies No known active allergies Medications LUTEIN ORAL Take by mouth 1 (one) time each day. Active dasatinib (SPRYCEL) 100 mg tablet Take 1 tablet (100 mg total) by mouth 1 (one) time each day 4 Active imatinib (GLEEVEC) 400 mg tabletIndicatio ns:CML (chronic myelocytic leukemia) ([facility] V24, [facility] V28) Take 1 tablet (400 mg total) [...] Diagnosed Date CML (chronic myelocytic leuk emia) ([facility] V24, [facility] V28) 02/01/2025 Microcytic anemia 02/01/2025 Hypertriglyceridemia 04/14/2018 Mid back pain 04/14/2018 Seborrheic keratosis 09/24/2017 Allergic rhinitis 03/25/2017 Encounters Date Type Department Care Team Description 04/19/2025 11:15 AM EDT Office Visit Internal Medicine - [place] [address] [facility] [address] [place] [address] Shakeel Menard MD Adult general medical examination (Primary Dx); CML (chronic myelocytic leukemia) ([facility] V24, [facility] V28); Hypertriglyceridemia 03/11/2025 Telephone Internal Medicine - [place] [address] [place] [address] Shakeel Menard MD 03/07/2025 Patient Outreach [facility] Hematology Oncology [address] [place] [address] Christopher Schrader RN from Last 3 Months Immunizations Name Administration Dates Next Due Tdap Tetanus diptheria acell ular pertussis (Boostrix; Adacel) 7yo and older 03/04/2019 Surgical History Surgery Date Site/Laterality Comments OTHER SURGICAL HISTORY Bilateral PROCEDURE: TX ARTHRS KNE SURG W/MENISCECTOMY MED/LAT W/SHVG COLONOSCOPY Medical History Medical History Date Comments History of cellulitis 06/14/2013 DX:History of cellulitis; COMMENT: and abscess of leg History of gastroenteritis 04/14/2018 DX:Hi story of gastroenteritis Mid back pain 04/14/2018 DX:Mid back pain Allergic rhinitis 03/25/2017 DX:Allergic rh initis Hypertriglyceridemia 04/14/2018 DX:Hypertri glyceridemia CML (chronic myeloid leukemi a) ([facility] V24, [facility] V28) IN REMISSION SOB (shortness of breath) [...] for your loved ones. For example, child protective services specialist or elderly care for an older adult? [...] Description 08/15/2025 10:00 AM EDT Office Visit [facility] Hematology Oncology [address] [place] [id number] Magda Milton MD [address] [place] [address] Health Maintenance Due Date Last Done Comments [...] general medical examination CML (chronic myelocytic leukemia) ([facility]/HCC V24, CMS/HCC V28) Hypertriglyceridem ia THYROID STIMULATING HORMONE Routine 05/05/2025 9:24 AM EDT Adult general medical examination CML (chronic myelocytic leukemia) (CMS/HCC V24, CMS/HCC V28) Hypertriglyceridem ia PROSTATE SPECIFIC ANTIGEN SCREEN Routine 05/05/2025 9:24 AM EDT Adult general medical examination CML (chronic myelocytic leukemia) (CMS/HCC V24, CMS/HCC V28) Hypertriglyceridem ia EXTERNAL NUC MED REPORT 04/22/2025 BCR ABL1 KINASE PCR, QUANTITATIVE Routine 03/15/2025 9:14 AM EDT CML (chronic myelocytic leukemia) ([facility]/HCC V24, CMS/HCC V28) VENIPUNCTURE ONLY Routine 03/15/2025 9:1 4 AM EDT CML (chronic myelocytic leukemia) (CMS/HCC V24, CMS/HCC V28) CBC WITH AUTO DIFFERENTIAL Routine 03/15/2025 9:14 AM EDT CML (chronic myelocytic leukemia) ([facility]/HCC V24, [facility]/HCC V28) COMPREHENSIVE METABOLIC PANEL Routine 03/15/2025 9:14 AM EDT CML (chronic myelocytic leukemia) ([facility]/HCC V24, [facility] V28) CBC AND DIFFERENTIAL Routine 03/15/2025 9:14 AM EDT CML (chronic myelocytic leukemia) ([facility]/HCC V24, [facility] V28) BCR ABL1 KINASE PCR, QUANTITATIVE Routine 03/15/2025 9:14 AM EDT CML (chronic myelocytic leukemia) ([facility] V24, [facility] V28) HM COLONOSCOPY Routine 01/14/2024 from Last 3 Months or Most Recently Relevant to Health Maintenance Results * (ABNORMAL) Prostate specific antigen screen (05/05/2025 9:24 AM EDT) PSA 4.12(H) 0.00 - 4.00 ng/mL LAB CHEMISTRY METHOD 05/05/2025 2:13 PM EDT [facility] Blood Venous blood specimen / Unknown Venipuncture / Unknown 05/05/2025 9:24 AM EDT 05/05/2025 9:24 AM EDT Narrative [facility] - 05/05/2025 2:13 PM EDT The Siemens Advia Centaur Chemiluminescent Immunoassay is used. Results obtained with different assay methods or kits cannot be used interchangeably. Results cannot be interpreted as absolute evidence of the presence or absence of malignant disease. us Shakeel Menard MD LAB BLOOD ORDERABLES Final Resul t [facility] [address] [place] [address], [place] [phone] * Lipid panel with reflex to direct LDL (05/05/2025 9:24 AM EDT) Cholesterol 160 0 - 200 mg/dL LAB CHEMISTRY METHOD 05/05/2025 12:29 PM EDT [facility] Triglycerides 104 0 - 150 mg/dL LAB CHEMISTRY METHOD 05/05/2025 12:29 PM EDT [facility] HDL 46 >=40 mg/dL LAB CHEMISTRY METHOD 05/05/2025 12:29 PM EDT [facility] LDL Calculated 93 0 - 100 mg/dL LAB CHEMISTRY METHOD 05/05/2025 12:29 PM EDT [facility] VLDL Cholesterol Mane 20.8 mg/dL LAB CHEMISTRY METHOD 05/05/2025 12:29 PM EDT [facility] Non HDL Chol. (LDL+VLDL) 114 <145 mg/dL LAB CHEMISTRY METHOD 05/05/2025 12:29 PM EDT [facility] Chol/HDL Ratio 3.5 0.0 - 4.4 LAB CHEMISTRY METHOD 05/05/2025 12:29 PM EDT [facility] Blood Venous blood specimen / Unknown Venipuncture / Unknown 05/05/2025 9:24 AM EDT 05/05/2025 9:24 AM EDT us Shakeel Menard MD LAB BLOOD ORDERABLES Final Resul t [facility] [address] [place] [address], * Thyroid stimulating hormone (05/05/2025 9:24 AM EDT) TSH 1.99 0.40 - 4.00 mcIU/mL LAB CHEMISTRY METHOD 05/05/2025 1:40 PM EDT [facility] Blood Venous blood specimen / Unknown Venipuncture / Unknown 05/05/2025 9:24 AM EDT 05/05/2025 9:24 AM EDT Shakeel Menard MD LAB BLOOD ORDERABLES Final Resul t RADHA TRIPLETT NE ([facility]) [facility] [address] [place] [address], [place] [phone] * External Nuc Med Report (04/22/2025) Anatomical Region Laterality Modality Nuclear Medicine us Provider [facility] NM PROCEDURES Final Result * BCR ABL1 kinase molecular study, quantitative (03/15/2025 9:14 AM EDT) Only the most recent of2 resultswithin the time period is included. e13a2 (b2a2) transcript <0.0032 % % 05/26/2025 5:05 PM EDT [facility] e14a2 (b3a2) transcript <0.0032 % % 05/26/2025 5:05 PM EDT [facility] e1a2 transcript <0.0032 % % 5:05 PM EDT [facility] Interpretation Negative 05/26/2025 5:05 PM EDT [facility] Comment: NEGATIVE for the BCR-ABL1 e1a2 (p190), e13a2 (b2a2, p210) and e14a2 (b3a2, p210) fusion transcripts. These results do not rule out the presence of rare BCR-ABL1 transcripts not detected by this assay. Director Review Technical Component performed at [facility] [place] 05/26/2025 5:05 PM EDT [facility] Comment: Professional Component performed by: Frank Elise, PhD, [facility] Director, Molecular Oncology [facility] [place] [id number], [address] [address] Background Note 05/26/2025 5:05 PM EDT [facility] Comment: This assay can detect three different types of BCR-ABL1 fusion transcripts associated with CML, ALL, and AML: e13a2 (previously b2a2) and e14a2 (previously b3a2) (major breakpoint, p210), as well as e1a2 (minor breakpoint, p190). The e13a2 and e14a2 transcript values are titrated to the current International Scale (IS). The standardized baseline is 100% BCR-ABL1 (IS) and major molecular response (MMR) is equivalent to 0.1% BCR-ABL1 (IS) corresponding to a 3-log reduction. Results should be correlated with appropriate clinical and laboratory information as indicated. Methodology Note 05/26/2025 5:05 PM EDT [facility] Comment: Total RNA is isolated from the sample and subject to a real-time, reverse transcriptase polymerase chain reaction (RT-PCR). The PCR primers and probes are specific for BCR-ABL1 e13a2, e14a2 and e1a2 fusion transcripts. The ABL1 transcript is amplified as the control for cDNA quantity and quality. Serial dilutions of a validated positive control RNA with known t(9;22) BCR-ABL1 are used as reference for quantification of BCR-ABL1 relative to ABL1. The numeric BCR-ABL1 level is reported as % BCR-ABL1/ABL1 and the detection sensitivity is 4.5 log below the standard baseline (<0.0032%). This test was developed and its performance characteristics determined by [employer]. It has not been cleared or approved by the Food and Drug Administration. References Note 05/26/2025 5:05 PM EDT [facility] Comment: 1) Rober TDanielle S. Molecular monitoring of chronic myeloid leukemia. Semin Hematol. 2003 Apr; 40(2 Suppl 2):62-68. 2) NCCN Clinical Practice Guidelines in Oncology Chronic Myeloid Leukemia Version 1.2024 - June 10, 2024 3) Zia CARROLL, Amparo P, Ruperto P, et al. Establishment of the of the first World Health Organization International Genetic Reference Panel for quantitation of BCR-ABL mRNA. Blood. 2010 25; 116(22):p041-687. Blood Venous blood specimen / Unknown Venipuncture / Unknown 03/15/2025 9:14 AM EDT 03/15/2025 11:16 AM EDT Narrative [facility] - 05/26/2025 5:05 PM EDT Performed at: - [facility] [address], [place], [place] [id number] City Carrier: Jaya Rosa [facility], Phone: [phone] Performed at: - [facility] [address] [place], [place] [id number] City Carrier: Jaya Rosa [facility], Phone: [phone] Magda Milton MD LAB MOLECULAR DIAGNOSTICS OR DERABLES Final Result [facility] * (ABNORMAL) CBC auto differential (03/15/2025 9:14 AM EDT) WBC 8.7 4.8 - 10.8 K/mcL LAB [facility] RBC 5.40 4.50 - 5.50 M/mcL LAB HEMETOLOGY METHOD 03/15/2025 11:[address] [facility] Hemoglobin 11.0(L) 13.5 - 17.5 g/dL LAB HEMETOLOGY METHOD 03/15/2025 11:[address] [facility] Hematocrit 38.4(L) 42.0 - 54.0 % LAB HEMETOLOGY METHOD 03/15/2025 11:[address] [facility] MCV 71.5(L) 79.0 - 98.0 FL LAB HEMETOLOGY METHOD 03/15/2025 11:[address] [facility] MCH 20.5(L) 27.0 - 32.0 pcg LAB HEMETOLOGY METHOD 03/15/2025 11:[address] [facility] MCHC 28.6(L) 32.0 - 37.0 g/dL LAB HEMETOLOGY METHOD 03/15/2025 11:[address] [facility] RDW 14.8 11.0 - 15.0 % LAB HEMETOLOGY METHOD 03/15/2025 11:[address] [facility] Platelets 399 130 - 400 K/mcL LAB HEMETOLOGY METHOD 03/15/2025 11:[address] [facility] MPV 9.2 7.0 - 11.0 FL LAB HEMETOLOGY METHOD 03/15/2025 11:[address] [facility] NRBC 0.0 <1.0 % LAB HEMETOLOGY METHOD 03/15/2025 11:[address] [facility] NRBC Absolute 0.00 <0.10 K/mcL LAB HEMETOLOGY METHOD 03/15/2025 11:[address] [facility] Neutrophils Relative 50.6 % LAB HEMETOLOGY METHOD 03/15/2025 11:[address] [facility] Lymphocytes Relative 34.4 % LAB HEMETOLOGY METHOD 03/15/2025 11:[address] [facility] Monocytes Relative 9.1 % LAB HEMETOLOGY METHOD 03/15/2025 11:[address] [facility] Eosinophils Relative 4.7 % LAB HEMETOLOGY METHOD 03/15/2025 11:[address] [facility] Basophils Relative 0.9 % LAB HEMETOLOGY METHOD 03/15/2025 11:[address] [facility] Immature Granulocytes Relative 0.3 % LAB HEMETOLOGY METHOD 03/15/2025 11:[address] [facility] Neutrophils Absolute 4.39 1.50 - 7.00 K/mcL LAB HEMETOLOGY METHOD 03/15/2025 11:[address] [facility] Lymphocytes Absolute 2.99 1.00 - 5.00 K/mcL LAB HEMETOLOGY METHOD 03/15/2025 11:[address] [facility] Monocytes Absolute 0.79 0.20 - 1.00 K/mcL LAB HEMETOLOGY METHOD 03/15/2025 11:[address] [facility] Eosinophils Absolute 0.41 0.00 - 0.50 K/mcL LAB HEMETOLOGY METHOD 03/15/2025 11:[address] [facility] Basophils Absolute 0.08 0.00 - 0.20 K/[facility] LAB HEMETOLOGY METHOD 03/15/2025 11:45 AM EDT [facility] Immature Granulocytes Absolute 0.03 0.00 - 0.03 K/[facility] LAB HEMETOLOGY METHOD 03/15/2025 11:45 AM EDT [facility] Blood Venous blood specimen / Unknown Venipuncture / Unknown 03/15/2025 9:14 AM EDT 03/15/2025 11:16 AM EDT Magda Milton MD LAB BLOOD ORDERABLES Final R esult Performing Organization Address City/[facility]/ZIP Co de Phone Number [facility] [address] [place] [address], [place] [phone] * Venipuncture only (03/15/2025 9:14 AM EDT) Venipuncture Performed 05/26/2025 12:05 PM EDT [facility] Blood Venous blood specimen / Unknown Venipuncture / Unknown 03/15/2025 9:14 AM EDT 03/15/2025 11:16 AM EDT Narrative [facility] - 05/26/2025 12:05 PM EDT Performed at: [address] [place] [address] [address], [address], [place], [place] [id number] City Carrier: Tomer Harrison MD, Phone: [phone] Magda Milton MD LAB BLOOD ORDERABLES Final R esult [facility] * Comprehensive metabolic panel (03/15/2025 9:14 AM EDT) Sodium 143 133 - 145 mmol/L LAB CHEMISTRY METHOD 03/15/2025 11:49 AM EDT [facility] Potassium 4.3 3.5 - 5.5 mmol/L LAB CHEMISTRY METHOD 03/15/2025 11:[address] [facility] Chloride 110 96 - 110 mmol/L LAB CHEMISTRY METHOD 03/15/2025 11:[address] [facility] CO2 26 21 - 32 mmol/L LAB CHEMISTRY METHOD 03/15/2025 11:[address] [facility] Anion Gap 7 3 - 11 LAB CHEMISTRY METHOD 03/15/2025 11:[address] [facility] Glucose 96 70 - 100 mg/dL LAB CHEMISTRY METHOD 03/15/2025 11:[address] [facility] BUN 18 5 - 25 mg/dL LAB CHEMISTRY METHOD 03/15/2025 11:[address] [facility] Creatinine 0.76 0.70 - 1.30 mg/dL LAB CHEMISTRY METHOD 03/15/2025 11:[address] [facility] eGFR 101 >=60 mL/min/1. 73m2 LAB CHEMISTRY METHOD 03/15/2025 11:[address] [facility] Comment:Calculation based on the Chronic Kidney Disease Epidemiology Collaboration (CKD-EPI) equation refit without adjustment for race. BUN/Creatinine Ratio 23.7 LAB CHEMISTRY METHOD 03/15/2025 11:[address] [facility] Calcium 8.8 8.5 - 10.5 mg/dL LAB CHEMISTRY METHOD 03/15/2025 11:[address] [facility] AST (SGOT) 17 10 - 42 unit/L LAB CHEMISTRY METHOD 03/15/2025 11:[address] [facility] ALT (SGPT) 22 10 - 60 unit/L LAB CHEMISTRY METHOD 03/15/2025 11:[address] [facility] Alkaline Phosphatase 117 42 - 121 unit/L LAB CHEMISTRY METHOD 03/15/2025 11:[address] [facility] Total Protein 6.4 6.0 - 8.0 g/dL LAB CHEMISTRY METHOD 03/15/2025 11:49 AM EDT [facility] Albumin 3.3 3.2 - 5.0 g/dL LAB CHEMISTRY METHOD 03/15/2025 11:49 AM EDT [facility] Total Bilirubin 0.4 0.0 - 1.4 mg/dL LAB CHEMISTRY METHOD 03/15/2025 11:49 AM EDT [facility] Blood Venous blood specimen / Unknown Venipuncture / Unknown 03/15/2025 9:14 AM EDT 03/15/2025 11:17 AM EDT Magda Milton MD LAB BLOOD ORDERABLES Final R esult [facility] [address] [place] [address], [place] [phone] * Colonoscopy (01/14/2024) Colonoscopy no interpretation , abstracted Anatomical Region Laterality Modality Other Historical Provider HEALTH MAINTENANCE Final Result from Last 3 Months or Most Recently Relevant to [place] [id number] [facility] [address] [place] [address] Care Teams Campus Coordinator Relationship Specialty Start Date End Date Shakeel Menard MD [address] [facility] [address] [place] [address] PCP - General Internal Medicine 11/23/18
--- OUTSIDE RECORDS SUMMARY | 2025-06-01 07:56 | XMS_ITS | Encounter Summary ---
Author Organization [facility] Address [address] [place] [address] Care Team Providers Care Hairspring Adjuster Name Role Phone Shakeel Menard MD Primary Care Provider Unavailab le Reason for Visit * Reason Comments Rash Encounter Details Date Type Department Care Team Description 04/05/2024 Nurse Only [facility] Oncology Services [address] [place] [address] Christopher Schrader RN Rash Social History Tobacco [...] Patient here for lab work stopped at frontend engineer and asked to see this check writer to discuss side effectfrom Tasigna he [...] on filedocumented in this encounter Care Teams Hairspring Adjuster Relationship Specialty Start Date End Date Shakeel Menard MD PCP - General Internal Medicine 02/09/24 documented as of this encounter
--- NOTE | 2025-06-01 14:29 | PFT_ITS ---
Indication: COPD Spirometry FEV1 to FVC 84%; FEV1 3.64 L; FVC 4.31 L. no significant response to bronchodilators noted. Lung Volumes Total lung capacity 110% predicted; residual volume 111% predicted Diffusion Capacity DLCO 103% predicted Comparisons None Interpretation No obstructive nor restrictive ventilatory defects identified. No significant response to bronchodilators noted. Normal lung volumes and normal diffusing capacity. The flow volume loop is consistent with normal lung mechanics. Clinical correlation warranted. MTDD
== END 2025-06-01 07:55 | disposition home or self-care (01) ==
LOC: HO.RESP 07:54
PROVIDERS: PCP Internal Medicine; Visit Provider Internal Medicine Pulmonary Disease
DX: R06.02 Shortness of breath (principal)
CPT/HCPCS: 94010; 94640; 94727; 94729

== ENCOUNTER → 2025-06-01 14:29 | Outpatient (BNV) | payer OTHER, SELFPAY | PROVIDERS: PCP Internal Medicine; Visit Provider Hospitalist | DX: J44.9 Chronic obstructive pulmonary disease, unspecified (principal) | CPT/HCPCS: 94060; 94727; 94729 ==

== ENCOUNTER → 2025-06-17 13:59 | Outpatient (AMB) | payer OTHER, SELFPAY ==
--- OUTSIDE RECORDS SUMMARY | 2025-06-17 14:02 | XMS_ITS | Clinical Summary ---
Author Organization [facility] Address [address] [place] [address] Phone Care Team Providers Care Account Executive Key Accounts Name Role Phone Shakeel Menard MD Primary Care Provider [phone] Allergies No known active allergies Medications LUTEIN ORAL Take by mouth 1 (one) time each day. Active dasatinib (SPRYCEL) 100 mg tablet Take 1 tablet (100 mg total) by mouth 1 (one) time each day 4 Active imatinib (GLEEVEC) 400 mg tabletIndicatio ns:CML (chronic myelocytic leukemia) ([facility] V24, [facility] V28) Take 1 tablet (400 mg total) [...] Diagnosed Date CML (chronic myelocytic leuk emia) ([facility] V24, [facility] V28) 02/01/2025 Microcytic anemia 02/01/2025 Hypertriglyceridemia 04/14/2018 Mid back pain 04/14/2018 Seborrheic keratosis 09/24/2017 Allergic rhinitis 03/25/2017 Encounters Date Type Department Care Team Description 04/19/2025 11:15 AM EDT Office Visit Internal Medicine - [place] [address] [facility] [address] [place] [address] Shakeel Menard MD Adult general medical examination (Primary Dx); CML (chronic myelocytic leukemia) ([facility] V24, [facility] V28); Hypertriglyceridemia from Last 3 Months Immunizations Name Administration Dates Next Due Tdap Tetanus diptheria acell ular pertussis (Boostrix; Adacel) 7yo and older 03/04/2019 Surgical History Surgery Date Site/Laterality Comments OTHER SURGICAL HISTORY Bilateral PROCEDURE: MS ARTHRS KNE SURG W/MENISCECTOMY MED/LAT W/SHVG COLONOSCOPY Medical History Medical History Date Comments History of cellulitis 06/14/2013 DX:History of cellulitis; COMMENT: and abscess of leg History of gastroenteritis 04/14/2018 DX:Hi story of gastroenteritis Mid back pain 04/14/2018 DX:Mid back pain Allergic rhinitis 03/25/2017 DX:Allergic rh initis Hypertriglyceridemia 04/14/2018 DX:Hypertri glyceridemia CML (chronic myeloid leukemi a) ([facility] V24, [facility] V28) IN REMISSION SOB (shortness of breath) [...] for your loved ones. For example, child welfare manager or elderly care for an older adult? [...] Description 08/15/2025 10:00 AM EDT Office Visit Hematology Oncology [address] [place] [id number] Magda Milton MD [address] [place] [address] Health Maintenance Due Date Last Done Comments [...] Procedure Name Priority Date/Time Associated Diagnosis Comments CBC WITH AUTO DIFFERENTIAL Routine 06/03/2025 9:00 AM EDT CML (chronic myelocytic leukemia) ([facility]/HCC V24, [facility]/HCC V28) COMPREHENSIVE METABOLIC PANEL Routine 06/03/2025 9:00 AM EDT CML (chronic myelocytic leukemia) (CMS/HCC V24, CMS/HCC V28) CBC AND DIFFERENTIAL Routine 06/03/2025 9:00 AM EDT CML (chronic myelocytic leukemia) (CMS/HCC V24, CMS/HCC V28) LIPID PANEL WITH REFLEX TO DIRECT LDL Routine 05/05/2025 9:24 AM EDT Adult general medical examination CML (chronic myelocytic leukemia) (CMS/HCC V24, CMS/HCC V28) Hypertriglyceridem ia THYROID STIMULATING HORMONE Routine 05/05/2025 9:24 AM EDT Adult general medical examination CML (chronic myelocytic leukemia) (CMS/HCC V24, CMS/HCC V28) Hypertriglyceridem ia PROSTATE SPECIFIC ANTIGEN SCREEN Routine 05/05/2025 9:24 AM EDT Adult general medical examination CML (chronic myelocytic leukemia) ([facility]/HCC V24, CMS/HCC V28) Hypertriglyceridem ia EXTERNAL NUC MED REPORT 04/22/2025 HM COLONOSCOPY Routine 01/14/2024 from Last 3 Months or Most Recently Relevant to Health Maintenance Results * (ABNORMAL) CBC auto differential (06/03/2025 9:00 AM EDT) [facility] WBC 10.2 4.8 - 10.8 K/mcL LAB HEMETOLOGY METHOD 06/03/2025 11:54 AM [facility] RBC 5.10 4.50 - 5.50 M/mcL LAB HEMETOLOGY METHOD 06/03/2025 11:54 AM [facility] Hemoglobin 10.9(L) 13.5 - 17.5 g/dL LAB HEMETOLOGY METHOD 06/03/2025 11:54 AM [facility] Hematocrit 38.8(L) 42.0 - 54.0 % LAB HEMETOLOGY METHOD 06/03/2025 11:54 AM [facility] MCV 75.6(L) 79.0 - 98.0 FL LAB HEMETOLOGY METHOD 06/03/2025 11:54 AM [facility] MCH 21.2(L) 27.0 - 32.0 pcg LAB HEMETOLOGY METHOD 06/03/2025 11:54 AM [facility] MCHC 28.1(L) 32.0 - 37.0 g/dL LAB HEMETOLOGY METHOD 06/03/2025 11:54 AM [facility] RDW 20.1(H) 11.0 - 15.0 % LAB HEMETOLOGY METHOD 06/03/2025 11:54 AM [facility] Platelets 351 130 - 400 K/mcL LAB HEMETOLOGY METHOD 06/03/2025 11:54 AM [facility] MPV 8.9 7.0 - 11.0 FL LAB HEMETOLOGY METHOD 06/03/2025 11:54 AM [facility] NRBC 0.0 <1.0 % LAB HEMETOLOGY METHOD 06/03/2025 11:54 AM [facility] NRBC Absolute 0.00 <0.10 K/mcL LAB HEMETOLOGY METHOD 06/03/2025 11:54 AM [facility] Neutrophils Relative 39.3 % LAB HEMETOLOGY METHOD 06/03/2025 11:54 AM [facility] Lymphocytes Relative 19.2 % LAB HEMETOLOGY METHOD 06/03/2025 11:54 AM [facility] Monocytes Relative 7.4 % LAB HEMETOLOGY METHOD 06/03/2025 11:54 AM [facility] Eosinophils Relative 32.9 % LAB HEMETOLOGY METHOD 06/03/2025 11:54 AM [facility] Basophils Relative 0.8 % LAB HEMETOLOGY METHOD 06/03/2025 11:54 AM [facility] Immature Granulocytes Relative 0.4 % LAB HEMETOLOGY METHOD 06/03/2025 11:54 AM [facility] Neutrophils Absolute 4.01 1.50 - 7.00 K/mcL LAB HEMETOLOGY METHOD 06/03/2025 11:54 AM [facility] Lymphocytes Absolute 1.96 1.00 - 5.00 K/mcL LAB HEMETOLOGY METHOD 06/03/2025 11:54 AM [facility] Monocytes Absolute 0.76 0.20 - 1.00 K/mcL LAB HEMETOLOGY METHOD 06/03/2025 11:54 AM [facility] Eosinophils Absolute 3.36(H) 0.00 - 0.50 K/mcL LAB HEMETOLOGY METHOD 06/03/2025 11:54 AM [facility] Basophils Absolute 0.08 0.00 - 0.20 K/mcL LAB HEMETOLOGY METHOD 06/03/2025 11:54 AM [facility] Immature Granulocytes Absolute 0.04(H) 0.00 - 0.03 K/mcL LAB HEMETOLOGY METHOD 06/03/2025 11:54 AM T [facility] Blood Venous blood specimen / Unknown Venipuncture / Unknown 06/03/2025 9:00 AM EDT 06/03/2025 11:27 AM EDT Magda Milton MD LAB BLOOD ORDERABLES Final R esult [facility] [address] [place] [address], [place] [phone] * (ABNORMAL) Comprehensive metabolic panel (06/03/2025 9:00 AM EDT) Sodium 142 133 - 145 mmol/L LAB CHEMISTRY METHOD 06/03/2025 12:38 PM [facility] Potassium 3.8 3.5 - 5.5 mmol/L LAB CHEMISTRY METHOD 06/03/2025 12:38 PM [facility] Chloride 110 96 - 110 mmol/L LAB CHEMISTRY METHOD 06/03/2025 12:38 PM [facility] CO2 27 21 - 32 mmol/L LAB CHEMISTRY METHOD 06/03/2025 12:38 PM [facility] Anion Gap 5 3 - 11 LAB CHEMISTRY METHOD 06/03/2025 12:38 PM [facility] Glucose 99 70 - 100 mg/dL LAB CHEMISTRY METHOD 06/03/2025 12:38 PM [facility] BUN 18 5 - 25 mg/dL LAB CHEMISTRY METHOD 06/03/2025 12:38 PM [facility] Creatinine 0.82 0.70 - 1.30 mg/dL LAB CHEMISTRY METHOD 06/03/2025 12:38 PM [facility] eGFR 99 >=60 mL/min/1. 73m2 LAB CHEMISTRY METHOD 06/03/2025 12:38 PM [facility] Comment:Calculation based on the Chronic Kidney Disease Epidemiology Collaboration (CKD-EPI) equation refit without adjustment for race. BUN/Creatinine Ratio 22.0 LAB CHEMISTRY METHOD 06/03/2025 12:38 PM [facility] Calcium 8.1(L) 8.5 - 10.5 mg/dL LAB CHEMISTRY METHOD 06/03/2025 12:38 PM [facility] AST (SGOT) 42 10 - 42 unit/L LAB CHEMISTRY METHOD 06/03/2025 12:38 PM [facility] Comment:Results verified by repeat testing ALT (SGPT) 66(H) 10 - 60 unit/L LAB CHEMISTRY METHOD 06/03/2025 12:38 PM [facility] Comment:Results verified by repeat testing Alkaline Phosphatase 134(H) 42 - 121 unit/L LAB CHEMISTRY METHOD 06/03/2025 12:38 PM [facility] Total Protein 5.8(L) 6.0 - 8.0 g/dL LAB CHEMISTRY METHOD 06/03/2025 12:38 PM [facility] Albumin 3.1(L) 3.2 - 5.0 g/dL LAB CHEMISTRY METHOD 06/03/2025 12:38 PM [facility] Total Bilirubin 0.5 0.0 - 1.4 mg/dL LAB CHEMISTRY METHOD 06/03/2025 12:38 PM [facility] Blood Venous blood specimen / Unknown Venipuncture / Unknown 06/03/2025 9:00 AM EDT 06/03/2025 11:27 AM EDT us Magda Milton MD LAB BLOOD ORDERABLES Final R esult [facility] [address] [place] [address], * (ABNORMAL) Prostate specific antigen screen (05/05/2025 9:24 AM EDT) Pathologist [facility] PSA 4.12(H) 0.00 - 4.00 ng/mL LAB CHEMISTRY METHOD 05/05/2025 2:13 PM EDT [facility] Blood Venous blood specimen / Unknown Venipuncture / Unknown 05/05/2025 9:24 AM EDT 05/05/2025 9:24 AM EDT Narrative [facility] - 05/05/2025 2:13 PM EDT The Siemens Advia Centaur Chemiluminescent Immunoassay is used. Results obtained with different assay methods or kits cannot be used interchangeably. Results cannot be interpreted as absolute evidence of the presence or absence of malignant disease. us Shakeel Menard MD LAB BLOOD ORDERABLES Final Resul t [facility] [address] [place] [address], [place] [phone] * Lipid panel with reflex to direct LDL (05/05/2025 9:24 AM EDT) [facility] Cholesterol 160 0 - 200 mg/dL LAB CHEMISTRY METHOD 05/05/2025 12:29 PM T [facility] Triglycerides 104 0 - 150 mg/dL LAB CHEMISTRY METHOD 05/05/2025 12:29 PM EDT [facility] HDL 46 >=40 mg/dL LAB CHEMISTRY METHOD 05/05/2025 12:29 PM EDT [facility] LDL Calculated 93 0 - 100 mg/dL LAB CHEMISTRY METHOD 05/05/2025 12:29 PM EDT [facility] VLDL Cholesterol Mane 20.8 mg/dL LAB CHEMISTRY METHOD 05/05/2025 12:29 PM T [facility] Non HDL Chol. (LDL+VLDL) 114 <145 mg/dL LAB CHEMISTRY METHOD 05/05/2025 12:29 PM EDT [facility] Chol/HDL Ratio 3.5 0.0 - 4.4 LAB CHEMISTRY METHOD 05/05/2025 12:29 PM EDT [facility] Blood Venous blood specimen / Unknown Venipuncture / Unknown 05/05/2025 9:24 AM EDT 05/05/2025 9:24 AM EDT Shakeel Menard MD LAB BLOOD ORDERABLES Final Resul t Performing Organization Address [facility]/ZIP Co de Phone Number [facility] [address] [place] [address], * Thyroid stimulating hormone (05/05/2025 9:24 AM EDT) TSH 1.99 0.40 - 4.00 mcIU/mL LAB CHEMISTRY METHOD 05/05/2025 1:40 PM EDT [facility] Blood Venous blood specimen / Unknown Venipuncture / Unknown 05/05/2025 9:24 AM EDT 05/05/2025 9:24 AM EDT us Shakeel Menard MD LAB BLOOD ORDERABLES Final Resul t Performing Organization Address [facility] de Phone Number [facility] [address] [place] [address], [place] [phone] * External Nuc Med Report (04/22/2025) Anatomical Region Laterality Modality Nuclear Medicine Provider Katelyn Onbase IMG NM PROCEDURES Final Result * Colonoscopy (01/14/2024) Colonoscopy no interpretation , abstracted Anatomical Region Laterality Modality Other Harish Collins MD HEALTH MAINTENANCE Final Result from Last 3 Months or Most Recently Relevant to Health [place] [id number] [facility] [address] [place] [address] Care Teams Account Executive Key Accounts Relationship Specialty Start Date End Date Shakeel Menard MD [address] [facility] [address] [place] [address] PCP - General Internal Medicine 11/23/18
--- OUTSIDE RECORDS SUMMARY | 2025-06-17 14:02 | XMS_ITS | Encounter Summary ---
Author Organization [facility] Address [address] [place] [address] Care Team Providers Care Bowling Alley Operator Name Role Phone Shakeel Menard MD Primary Care Provider Unavailab le Reason for Visit * Reason Comments Rash Encounter Details Date Type Department Care Team Description 04/05/2024 Nurse Only [facility] On[facility] [address] [place] [address] Christopher Schrader RN Rash Social History Tobacco [...] Patient here for lab work stopped at medical front desk coordinator and asked to see this adjusto writer operator to discuss side effectfrom Tasigna he was [...] on filedocumented in this encounter Care Teams Bowling Alley Operator Relationship Specialty Start Date End Date Shakeel Menard MD PCP - General Internal Medicine 02/09/24 documented as of this encounter
--- OUTSIDE RECORDS SUMMARY | 2025-06-17 14:02 | XMS_ITS | Clinical Summary ---
Author Organization [facility] Address [address] [place] [address] Care Team Providers Care Director Of Content Marketing Name Role Phone Quinton Rosales Primary Care [...] this topic Zoster (Zostavax) Discontinued Care Teams Director Of Content Marketing Relationship Specialty Start Date End Date Quinton Rosales PCP - General 06/09/23
[2025-06-17 14:05] VITALS: BP 118/62; PULSE 86; O2SAT 97; BMI 24.8
--- NOTE | 2025-06-17 14:05 | A.OFFVIS_ITS ---
Vital Signs 06/17/25 14:05 Height 5 ft 9 in Weight 168 lb BMI 24.8 BP 118/62 Blood Pressure Location Rt brachial Position Sitting Pulse 86 Pulse Source Pulse Oximeter Pulse Oximetry (%) 97 Oxygen Delivery Method Room Air Intake Visit Reasons: COPD/PFT Follow Up Allergies No Known Allergies Allergy (Verified 06/17/25 14:09) HPI HPI COPD/PFT Follow Up: Details: 64-year-old gentleman, nonsmoker, with no prior personal or family history of lung disease, currently undergoing treatment for CML referred for evaluation of episode of dyspnea and chest pressure that occurred after patient played [employer] ball with no further recurrence. Patient states that he had recent negative cardiac workup. His workup did include chest x-ray which was read as consistent with COPD. Patient denies exposure to industrial dusts. Patient denies recent respiratory symptoms. After the last office visit patient had an essentially normal PFT and he denies any dyspnea symptoms at this time. [facility] Medical History CML (chronic myelocytic leukemia) Enlarged heart COPD (chronic obstructive pulmonary disease) Surgical History H/O knee surgery Family History Mother CHF (congestive heart failure) Pacemaker Stroke Diabetes Father Bladder cancer Social History Alcohol intake: former Patient Tobacco Use Status: Never used Tobacco Review of Systems Const Denies daytime sleepiness, Denies excessive sweating, Denies fatigue, Denies fever(s), Denies lethargy, Denies malaise, Denies night sweats, Denies snoring and Denies weight loss Eyes Denies blurry vision and Denies itchy eyes ENT Denies nasal congestion, Denies post nasal drip, Denies sinus pain, Denies sinus pressure and Denies other ( Thrush) Card Denies chest pain, Denies pedal edema, Denies dyspnea, Denies orthopnea and Denies paroxysmal nocturnal dyspnea Resp Denies cough, Denies hemoptysis, Denies excessive phlegm production, Denies dyspnea, Denies snoring and Denies wheezing GI Denies abdominal pain and Denies heartburn Musc Denies myalgias, Denies arthralgias and Denies joint swelling Skin/Breast Denies rash Neuro Denies memory loss and Denies seizure-like activity Psych Denies abnormal sleep pattern, Denies anxiety and Denies memory loss Endo Denies excessive sweating, Denies fatigue and Denies heat intolerance Kristopher/Lymph Denies easy bruising Aller/Immun Denies itchy eyes, Denies seasonal rhinorrhea and Denies wheezing Physical Exam Vital Signs: Last Vital Signs Pulse 86 06/17/25 14:05 BP 118/62 06/17/25 14:05 Pulse Ox 97 06/17/25 14:05 Oxygen Delivery Method Room Air 06/17/25 14:05 BMI result Body Mass Index 24.8 Const General: no acute distress and alert Nutritional Appearance: not obese Orientation/consciousness: Other orientation findings ( oriented) HEENT Head: Yes atraumatic Eyes General: appearance normal, both eyes and all related structures Sclerae: sclerae normal EOM: EOMs intact bilaterally Neck Neck: Yes supple Lymphatic: no lymphadenopathy noted Resp Effort & Inspection: normal respiratory effort and no use of accessory muscles Auscultation: clear to auscultation bilaterally Cardio Rate: regular rate Rhythm: regular rhythm Heart sounds: no gallops, no murmurs and no rubs Skin General skin exam: other ( warm) Extrem General: No clubbing, No cyanosis and No edema Assessment & Plan Assessment & Plan (1) SOB (shortness of breath): Code(s): R06.02 - Shortness of breath Category: Medical Plan: Essentially asymptomatic with normal PFT. No pulmonary treatments indicated. Coding Level of Care Code Est Pt Level 3 (77116) Diagnoses SOB (shortness of breath) R06.02
== END ==
LOC: HO.HPS 14:00
PROVIDERS: PCP Internal Medicine; Visit Provider Internal Medicine Pulmonary Disease
DX: R06.02 Shortness of breath (principal)
CPT/HCPCS: 99213